=== PATIENT | female | born 1970 | race Caucasian/White ===

== ENCOUNTER 2019-10-06 15:45 | Outpatient (CLI) | payer BC, SELFPAY ==
[2019-10-06 16:02] LABS: Basophils Percent Auto 0.3 % (0.2-1.2); Eosinophils Absolute Auto 0.2 K/mm3 (0-0.3); Eosinophils Percent Auto 1.9 % (0-4.4); Hematocrit 44.2 % (37.0-47.0); Hemoglobin 14.3 g/dL (12.0-15.0); Immature Granulocyte Absolute 0.03 K/mm3 (0.00-0.031); Immature Granulocyte Percent A 0.3 % (0-0.5); Lymphocytes Percent Auto 14.6 % (18.3-44.2); Mean Corpuscular HGB Conc 32.4 g/dl (32-36); Mean Corpuscular Hemoglobin 28.1 pg (26-34); Mean Platelet Volume 8.8 fl (7.4-10.4); Monocytes Absolute Auto 0.7 K/mm3 (0.1-0.6); Monocytes Percent Auto 7.2 % (2.6-8.5); Neutrophils Absolute Auto 7.3 K/mm3 (1.3-6.7); Neutrophils Percent Auto 75.7 % (45.5-73.1); Platelet Count Result 438 k/mm3 (150-375); Red Blood Count 5.08 M/mm3 (4.2-5.4); Red Cell Distribution Width 13.1 % (11.5-14.5); White Blood Count 9.6 K/mm3 (4.5-10.0)
[2019-10-06 16:08] LABS: Blood Urea Nitrogen 6 mg/dL (8-26); Carbon Dioxide 26 mmol/L (22-30); Chloride 105 mmol/L (98-109); Estimated Glomerular Filt Rate > 60; Glucose 90 mg/dL (70-105); Potassium 2.9 mmol/L (3.5-4.9); Sodium 141 mmol/L (138-146)
[2019-10-06 16:47] LABS: Iron 32 ug/dL (37-170)
[2019-10-06 16:56] LABS: Percent Iron Saturation 12 % (20-50)
[2019-10-06 18:01] LABS: Folic Acid 6.4 ng/mL (2.76->20)
== END 2019-10-06 15:46 | disposition home or self-care (01) ==
LOC: ANHLAB 15:49
PROVIDERS: PCP Family Medicine; Visit Provider Internal Medicine Hematology & Oncology
DX: D05.11 Intraductal carcinoma in situ of right breast (principal); D50.9 Iron deficiency anemia, unspecified
CPT/HCPCS: 36415; 80048; 82607; 82728; 82746; 83540; 83550; 85025

== ENCOUNTER 2019-11-01 06:54 | Outpatient (CLI) | payer BC, SELFPAY ==
--- NOTE | ~2019-11-01 | XR_ITS ---
XR abdomen/kub 1V 11/01/2019 07:20 Indication: Left-sided kidney stones Procedure: KUB Comparison: Comparison to multiple prior studies sequentially, with oldest reviewed study dated 01/15. Findings: There are clustered fragmented stones in the lower pole of the left kidney. There is an IUD in the pelvis. There are pelvic phleboliths. Bowel gas pattern is nonobstructive. No acute osseous a bnormality. Impression: 1: Left nephrolithiasis. Reviewed, dictated and finalized at location A. Impression: 1: Left nephrolithiasis.
== END 2019-11-01 06:55 | disposition home or self-care (01) ==
PROVIDERS: PCP Family Medicine; Visit Provider Urology
DX: N20.0 Calculus of kidney (principal)
CPT/HCPCS: 74018

== ENCOUNTER 2020-03-31 13:15 | Outpatient (CLI) | payer BC, SELFPAY ==
[2020-03-31 13:32] LABS: Basophils Percent Auto 0.3 % (0.2-1.2); Eosinophils Absolute Auto 0.2 K/mm3 (0-0.3); Hematocrit 40.8 % (37.0-47.0); Hemoglobin 13.4 g/dL (12.0-15.0); Immature Granulocyte Absolute 0.03 K/mm3 (0.00-0.031); Immature Granulocyte Percent A 0.3 % (0-0.5); Lymphocytes Absolute Auto 1.47 K/mm3 (0.9-3.2); Lymphocytes Percent Auto 14.6 % (18.3-44.2); Mean Corpuscular HGB Conc 32.8 g/dl (32-36); Mean Corpuscular Hemoglobin 28.5 pg (26-34); Mean Corpuscular Volume 86.6 fl (80-100); Monocytes Absolute Auto 0.7 K/mm3 (0.1-0.6); Monocytes Percent Auto 6.6 % (2.6-8.5); Neutrophils Absolute Auto 7.7 K/mm3 (1.3-6.7); Neutrophils Percent Auto 76.2 % (45.5-73.1); Platelet Count Result 449 k/mm3 (150-375); Red Blood Count 4.71 M/mm3 (4.2-5.4); Red Cell Distribution Width 12.9 % (11.5-14.5); White Blood Count 10.1 K/mm3 (4.5-10.0)
[2020-03-31 14:59] LABS: Iron 42 ug/dL (37-170)
[2020-03-31 15:00] LABS: Alanine Aminotransferase 13 U/L (4-35); Albumin Level 4.2 g/dL (3.5-5.1); Alkaline Phosphatase 88 U/L (38-126); Anion Gap 15.1 mmol/L (7-16); Aspartate Amino Transferase 18 U/L (14-36); Bilirubin,Total 0.2 mg/dL (0.2-1.3); Blood Urea Nitrogen 12 mg/dL (7-17); Calcium 9.1 mg/dL (8.4-10.2); Carbon Dioxide 20 mmol/L (22-30); Chloride 108 mmol/L (98-107); Estimated Glomerular Filt Rate > 60; Glucose 105 mg/dL (65-105); Potassium 3.1 mmol/L (3.4-5.0); Sodium 140 mmol/L (137-145)
[2020-03-31 15:08] LABS: Percent Iron Saturation 16 % (20-50)
[2020-03-31 16:05] LABS: Folic Acid 13.2 ng/mL (2.76->20)
== END 2020-03-31 13:16 | disposition home or self-care (01) ==
PROVIDERS: PCP Family Medicine; Visit Provider Internal Medicine Hematology & Oncology
DX: D50.9 Iron deficiency anemia, unspecified (principal)
CPT/HCPCS: 36415; 80053; 82607; 82728; 82746; 83540; 83550; 85025

== ENCOUNTER → 2020-04-20 11:26 | Outpatient (CLI) | payer BC, SELFPAY ==
--- NOTE | ~2020-04-20 | US_ITS ---
EXAMINATION: US transvaginal EXAM DATE: 04/20/2020 12:07 INDICATION: Missing IUD strings. TECHNIQUE: Pelvic transvaginal sonogram was performed. There are multiple grayscale and Doppler imag es available for interpretation. There is no prior study for comparison. FINDINGS: Uterus measures 9.5 x 6.2 x 7.2 cmthere is a posterior fibroid measuring 3.6 cm, an anteri or fibroid measuring 1.9 cm. Artifact from IUD identified, appears to be along the posterior aspect o f the endometrial stripe rather than within the endometrial cavity Endometrial stripe measures 11 mm, within normal limits. There is no free pelvic fluid. Right adnexa: The ovary measures 3.3 x 1.8 x 1.9 cm and is morphologically normal. Ovarian vascular f low confirmed. Left adnexa: The ovary measures 2.5 x 1.8 x 1.5 cm and is morphologically normal. Ovarian vascular fl ow confirmed. IMPRESSION: 1. IUD which may be within posterior aspect of endometrium rather than within the canal. Reviewed, dictated and finalized at location A.
== END ==
PROVIDERS: Visit Provider Nurse Practitioner
DX: T83.32XA Displacement of intrauterine contraceptive device, initial encounter (principal)
CPT/HCPCS: 76830

== ENCOUNTER 2020-06-30 08:58 | Outpatient (CLI) | payer BC, SELFPAY | END 2020-06-30 08:59 | disposition home or self-care (01) | LOC: ANHAUDIO 08:59 | PROVIDERS: PCP Family Medicine; Visit Provider Otolaryngology | DX: H69.80 Other specified disorders of Eustachian tube, unspecified ear (principal); H69.00 Patulous Eustachian tube, unspecified ear | CPT/HCPCS: 92557; 92567 ==

== ENCOUNTER 2023-08-05 12:50 | Emergency (ER) | payer OTHER, SELFPAY ==
[2023-08-05 12:59] VITALS: BP 106/69; PULSE 82; RESP 16; TEMP 36.7; O2SAT 100
--- NOTE | 2023-08-05 13:53 | ED.URI ---
HPI - URI/Sore Throat General Chief Complaint: Upper Respiratory Infection Stated Complaint: Sinus Time Seen by Provider: 08/05/23 13:53 Source: patient, RN notes reviewed and old records reviewed Mode of arrival: ambulatory Limitations: no limitations History of Present Illness HPI Narrative: 53-year-old female presents to the [facility] with sinus congestion and fevers since Friday. Patient reports fevers as high as 103. Has taken emvo-fih-kihngpl products. Related Data Home Medications Medication Instructions Recorded Confirmed venlafaxine 150 mg mg PO 08/05/23 capsule,extended release 24 hr Allergies Allergy/AdvReac Type Severity Reaction Status Date / Time meperidine Allergy Severe THROAT Verified 08/05/23 13:08 SWELLING Review of Systems Review of Systems: All systems reviewed & are unremarkable except as noted in HPI and below Constitutional: Constitutional: Reports as per HPI, Reports body ache(s), Reports fatigue and Reports fever(s) Eyes: Eyes: Reports no additional eye complaints ENT: Reports system reviewed and no additional complaints, except as documented Cardiovascular: Cardiovascular: Reports no additional cardiovascular complaints, Denies chest pain and Denies dyspnea Respiratory: Respiratory: Reports no additional respiratory complaints, Denies chest congestion, Denies cough and Denies dyspnea Gastrointestinal: Gastrointestinal: Reports no additional gastrointestinal complaints, Denies abdominal pain, Denies nausea and Denies vomiting Musculoskeletal: Musculoskeletal: Reports no additional musculoskeletal complaints Integumentary/Breasts: Skin/Breast: Reports system reviewed and no additional complaints, except as docu Neurologic: Reports system reviewed and no additional complaints, except as documented Psychiatric: Psychiatric: Reports no additional psychiatric complaints Allergic/Immunologic: Allergic/Immunologic: Reports no additional allergic/immunologic complaints [facility] Past Medical History Medical History Anxiety B12 deficiency Breast cancer Surgical History Surgical History History of mastectomy (~2019) bilateral Family History Family History Father COPD (chronic obstructive pulmonary disease) Mother Breast cancer Father Diabetes mellitus Grandparent Diabetes mellitus Hypertension Malignant neoplasm of prostate Mother Hypertension Family history of malignant neoplasm of breast in first degree relative Social History Social History (Reviewed 08/05/23 @ 20:30 by TEX John Smoking status: Never smoker Second hand tobacco smoke exposure: No Alcohol intake: current Alcohol use details: socially Substance use: never Comments At the time of my signature, I reviewed and agree with the nursing past medical, surgical, social, and family history. There is no relevant family history pertinent to the patient complaint. Exam Const: General: cooperative, healthy appearing, comfortable, no acute distress, well developed, alert and well nourished Nutritional Appearance: well nourished Orientation/consciousness: patient oriented x3 Limitations: no limitations HENMT: Head: normal to inspection Ears: hearing grossly normal bilaterally, external ears normal, TM's normal bilaterally, mastoids normal and no periauricular adenopathy Face/Nose/Sinus: Normal external nose present, Normal nares present, Normal nasal mucous membranes and turbinates present, normal facial exam and face symmetric Face and sinus: normal facial exam and face symmetric Mouth: Yes Normal oral and palatal mucosa present, Yes lip normal and Yes moist mucous membranes Throat: posterior oropharynx normal, tonsils normal, uvula midline and postnasal drainage Eyes: General: appearance normal, both eyes an
== END 2023-08-05 14:05 | disposition home or self-care (01) ==
PROVIDERS: Emergency Provider Nurse Practitioner; PCP Family Medicine
DX: J10.1 Influenza due to other identified influenza virus with other respiratory manifestations (principal); Z20.822 Contact with and (suspected) exposure to COVID-19; F41.9 Anxiety disorder, unspecified; Z85.3 Personal history of malignant neoplasm of breast; Z90.13 Acquired absence of bilateral breasts and nipples
CPT/HCPCS: 87426; 87804; 99213; C9803; G0463

== ENCOUNTER 2024-05-01 08:45 | Outpatient (CLI) | payer OTHER, SELFPAY ==
[2024-05-01 09:19] LABS: Hematocrit 40.8 % (37.0-47.0); Hemoglobin 12.9 g/dL (12.0-15.0); Mean Corpuscular HGB Conc 31.6 g/dl (32-36); Mean Corpuscular Volume 88.7 fl (80-100); Mean Platelet Volume 9.7 fl (7.4-10.4); Platelet Count Result 377 k/mm3 (150-375); Red Cell Distribution Width 14.3 % (11.5-14.5); White Blood Count 9.9 K/mm3 (4.5-10.0)
[2024-05-01 09:30] LABS: Hemoglobin A1C 5.8 % (<5.7)
[2024-05-01 09:32] LABS: Alanine Aminotransferase 31 U/L (6-35); Alkaline Phosphatase 92 U/L (38-126); Anion Gap 11 mmol/L (4-12); Aspartate Amino Transferase 27 U/L (14-36); Bilirubin,Total 0.3 mg/dL (0.2-1.3); Blood Urea Nitrogen 18 mg/dL (7-17); Calcium 9.2 mg/dL (8.4-10.2); Carbon Dioxide 24 mmol/L (22-30); Chloride 106 mmol/L (98-107); Cholesterol 192 mg/dL (0-200); Estimated Glomerular Filt Rate > 60; Glucose 95 mg/dL (65-110); HDL Direct 50 mg/dL; Potassium 3.8 mmol/L (3.4-5.0); Sodium 141 mmol/L (137-145); Triglycerides 167 mg/dL (<150)
[2024-05-01 09:43] LABS: LDL Cholesterol Direct 107 mg/dL
[2024-05-01 09:57] LABS: Free T4 Free Thyroxine 1.14 ng/mL (0.78-2.19); Vitamin D 25 Hydroxy 30.6 ng/mL
== END 2024-05-01 08:46 | disposition home or self-care (01) ==
LOC: ANHLAB 08:47
PROVIDERS: PCP Family Medicine; Visit Provider Nurse Practitioner
DX: E55.9 Vitamin D deficiency, unspecified (principal); Z13.1 Encounter for screening for diabetes mellitus; Z13.220 Encounter for screening for lipoid disorders; Z13.29 Encounter for screening for other suspected endocrine disorder; Z13.0 Encounter for screening for diseases of the blood and blood-forming organs and certain disorders involving the immune mechanism
CPT/HCPCS: 36415; 80053; 80061; 82306; 82607; 83036; 84439; 84443; 85027

== ENCOUNTER 2024-12-28 15:01 | Outpatient (CLI) | payer OTHER, SELFPAY ==
--- NOTE | ~2024-12-28 | CT_ITS ---
Non-contrast CT scan of the Abdomen and Pelvis Clinical indication: Rib fractures Technique: 2.5 mm axial scans were obtained through the abdomen and pelvis without intravenous or or al contrast. Dose reduction technique was used on this scan by utilizing automated exposure control a nd iterative reconstruction technique. The dose-length product (DLP) was 398.10 mGy-cm. Findings: Images through the lung bases reveal no abnormalities. Prior ORIF of the right sixth throu gh ninth ribs. Additional healed fracture deformity of the right 10th rib noted. 14 mm nonobstructing left lower pole renal stone present. Probable 4 mm nonobstructing right renal st one. No ureteral stone or hydronephrosis on either side. The liver, spleen, pancreas, gallbladder, and adrenals appear normal. There is no aortic aneurysm. There is no evidence of bowel obstruction. Images through the pelvis were performed. There is no evidence of ascites or lymphadenopathy. Urinary bladder unremarkable. No adnexal mass. Subacute to chronic fracture deformity of the right iliac win g present. Impression: Multiple rib fracture deformities the right lung base, as detailed above, with prior ORIF from the si xth and ninth ribs. Subacute to chronic fracture deformity the right iliac wing. Correlate with clinical history. Bilateral nephrolithiasis, as above. Reviewed, dictated and finalized at location . Impression: Multiple rib fracture deformities the right lung base, as detailed above, with prior ORIF from the sixth and ninth ribs. Subacute to chronic fracture deformity the right iliac wing. Correlate with cli nical history. Bilateral nephrolithiasis, as above.
--- OUTSIDE RECORDS SUMMARY | 2024-12-28 15:12 | XMS_ITS | Clinical Summary ---
Author Organization [facility] Address [address] [place] [address] Phone Care Team Providers Care Vocational Nurse Name Role Phone Kizzy Nava MD Primary Care Provider [phone] Amber Williamson MD Unavailable [phone] Allergies Active Allergy Reactions Criticality Noted Date Comments Meperidine Swelling,Angioedema High 12/17/2018 Swollen face Medications traZODone (DESYREL) 50 mg tablet Take 1 tablet (50 mg total) by mouth nightly Active venlafaxine XR (EFFEXOR-XR) 150 mg 24 hr capsule Take 1 capsule (150 mg total) by mouth daily Active meloxicam (MOBIC) 15 mg tabletIndications: Left elbow pain,Medial epicondylitis of left elbow,Lateral epicondylitis of left elbow,Carpal tunnel syndrome of left wrist Take 1 tablet (15 mg total) by mouth daily with breakfast 30 tablet 4 Active Active Problems Problem Noted Date Diagnosed Date HX: breast cancer 03/09/2023 Abdominal ptosis 12/03/2019 Overview (12/03/2019): Added automatically from request for surgery [id number] H/O bilateral breast implants 12/03/2019 Overview (12/03/2019): Added automatically from request for surgery [id number] Ductal carcinoma in situ (DCIS) of breast 2018 Surgical History Surgery Date Site/Laterality Comments TONSILLECTOMY 08/25/1996 - 08/24/1997 SECTION 08/25/1999 - 08/24/2000 reports had drop in BP during csection UPPER GASTROINTESTINAL ENDOSCOPY 10/23/2018 - 11/22/2018 COLONOSCOPY 10/23/2018 - 11/22/2018 LITHOTRIPSY 08/25/2018 - 08/24/2019 BREAST BIOPSY 08/25/2018 - 08/24/2019 Right DCIS MASTECTOMY 07/25/2019 - 08/24/2019 Bilateral Medical History Medical History Date Comments Iron deficiency anemia Postoperative delirium short per iod of confusion followig previous procedures History of kidney stones s/p lit hotripsy 02/2019 History of breast cancer Right D CIS dxd 2018 s/p bilateral mastectomy 07/2019 Family History Medical History Relation Name Comments Bladder Cancer Father Breast cancer Mother Stroke Other possible grandp arent with CVA Coronary artery disease Paternal Grandmother s/p CABG Heart attack Paternal Grandmother Anesthesia problems Neg Hx Relation Name Status Comments Father Mother Other Paternal Grandmother Social History Tobacco Use Types Packs/Day Years Used Date Smoking Tobacco: Never Smokeless Tobacco: Never Tobacco Cessation:Counseling Given: Not Answered Alcohol Use Standard Drinks/Week Comments Yes 1 (1 standard drink = 0.6 oz pur e alcohol) Social AUDIT-C Answer Date Recorded Frequency of Alcohol Consumption 2-4 times a fri07/08/2019 Average Number of Drinks 1 or 2 019 Frequency of Binge Drinking Never 06/25 Comments No Sex and Gender Information Value Date Recorded Sex Assigned at Not on file 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 Gender Identity Female 02/05/2020 5:37 PM CDT Sexual Orientation Not on file Obstetrics History Last Filed Vital Signs Vital Sign Reading Time Taken Comments Blood Pressure 125/65 01/13/2024 1:08 PM CDT Pulse 65 01/13/2024 1:08 PM CDT Temperature 36.5 C (97.7 F) 10/30/2020 12:52 PM MVA OPERATOR Respiratory Rate 18 01/13/2024 1:08 PM CDT Oxygen Saturation 100% 02/08/2020 7:46 AM CDT Inhaled Oxygen Concentration - - Weight 53.5 kg (118 lb) 01/13/2024 1:08 PM CDT Height 152.4 cm (5') 01/13/2024 1:08 PM CDT Body Mass Index 23.05 01/13/2024 1:08 PM CDT Plan of Treatment Health Maintenance Due Date Last Done Comments Breast Cancer Screening-Mammogram 1972 Cervical Cancer Screening 1972 Colon Cancer Screening-Colonoscopy 1972 Depression Screening 1972 Hepatitis C Screening 1972 DTaP/Tdap/Td Vaccine (1 - Tdap) 1983 Hepatitis B Screening 1990 Regular Well Visit/Exam 18-64 1990 Zoster Vaccine (1 of 2) 2022 Influenza Vaccine (Season Ended) 2025 05/13/20 20 Pneumococcal vaccine <65 Aged Out No longer eligible based on patient's age to complete this topic Medical Devices Implanted Type Area Medical Equipment Repairer Device Identifier Shelf Expiration Date Model / Serial / Lot Life Cell Breeze [employer] [id number] Alloderm Select [id number] Allograft Regenerative Thk.4-2.4mm Thick - [id number] - [id number] Implanted:Qty: 1 on 07/28/2019 by Luca West MD at [facility] Breast Right: Breast [employer] 06/24/2021 [id number] / [id number] / [id number] Life Cell Eloina [id number] Alloderm Select [id number] Allograft Regenerative Thk.4-2.4mm Thick - [id number] - [id number] Implanted:Qty: 1 on 07/28/2019 by Luca West MD at [facility] Breast Left: Breast [employer] 06/24/2021 [id number] / [id number] / [id number] [employer] Ssf-415 Natdianee Inspira Smooth Shell Surface Full Profile Implant 415cc Latex Free - [id number] - [id number] Implanted:Qty: 1 on 07/28/2019 by Amber Williamson MD at [facility] Breast Left: Breast [employer] 07/15/2023 SSF-415 / [id number] / [id number] [employer] Ssf-415 Natrelle Inspira Smooth Shell Surface Full Profile Implant 415cc Latex Free - [id number] - [id number] Implanted:Qty: 1 on 07/28/2019 by Amber Williamson MD at [facility] Breast Right: Breast [employer] 02/03/2024 SSF-415 / [id number] / [employer] Ssx-545 Natrelle Inspira Soft Touch Implant 545cc Breast Sterile Latex Free - [id number] - [id number] Implanted:Qty: 1 on 02/07/2020 by Piedad Mackey MD at [facility] Left: Breast [employer] 09/18/2024 SSX-545 / [id number] / [employer] Ssx-545 Natrelle Inspira Soft Touch Implant 545cc Breast Sterile Latex Free - [id number] - [id number] Implanted:Qty: 1 on 02/07/2020 by Anna Beltran MD at [facility] Right: Breast [employer] 02/03/2023 SSX-545 / [id number] / Explanted Type Area Medical Equipment Repairer Device Identifier Shelf Expiration Date Model / Serial / Lot Breast Implant Explanted:Qty: 1 on 02/07/2020 by Piedad Mackey MD at [facility] Right: Breast [employer] Breast Implant Explanted:Qty: 1 on 02/07/2020 by Anna Beltran MD at [facility] Left: Breast [employer] Insurance [facility] [employer] Address: [place] [address] [facility] [employer] [facility] Address: [place] [address] Advance Directives For more information, please contact: [phone] * Full Code (Latest Code Status on File) Date Activated Date Inactivated Comments 02/07/2020 3:23 PM 02/08/2020 1:40 PM * Full Code Date Activated Date Inactivated Comments 07/28/2019 5:09 PM 07/29/2019 3:35 PM Care Teams Vocational Nurse Relationship Specialty Start Date End Date Kizzy Nava MD PCP - General Family Medicine 04/06/19 Amber Williamson MD Surgeon Surgical Oncology 09/20/19
--- OUTSIDE RECORDS SUMMARY | 2024-12-28 15:12 | XMS_ITS | Referral Summary ---
Author Organization [facility] Address [address] [place] [address] Phone Care Team Providers Care Professional Shopper Name Role Phone Kizzy Nava MD Primary Care Provider [phone] Amber Williamson MD Unavailable [phone] Allergies Active Allergy Reactions Criticality Noted Date [...] (12/03/2019): Added automatically from request for surgery [id number] H/O bilateral breast implants 12/03/2019 Overview (12/03/2019): Added automatically from request for surgery [id number] Ductal carcinoma in situ (DCIS) of breast 2018 Social History Tobacco Use Types Packs/Day Years Used Date Smoking Tobacco: Never Smokeless Tobacco: Never Tobacco Cessation:Counseling Given: Not Answered Alcohol Use Standard Drinks/Week Comments Yes 1 (1 standard drink = 0.6 oz pur e alcohol) Social AUDIT-C Answer Date Recorded Frequency of Alcohol Consumption 2-4 times a mon 07/08/2019 Average Number of Drinks 1 or 2 019 Frequency of Binge Drinking Never 06/25 Comments No Sex and Gender Information Value Date Recorded Sex Assigned at Not on file 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 Gender Identity Female 02/05/2020 5:37 PM CDT Sexual Orientation Not on file Last Filed Vital Signs Vital Sign Reading Time Taken Comments Blood Pressure 125/65 01/13/2024 1:08 PM CDT Pulse 65 01/13/2024 1:08 PM CDT Temperature 36.5 C (97.7 F) 10/30/2020 12:52 PM PROGRAMMING INTERNSHIP Respiratory Rate 18 01/13/2024 1:08 PM CDT Oxygen Saturation 100% 02/08/2020 7:46 AM CDT Inhaled Oxygen Concentration - - Weight 53.5 kg (118 lb) 01/13/2024 1:08 PM CDT Height 152.4 cm (5') 01/13/2024 1:08 PM CDT Body Mass Index 23.05 01/13/2024 1:08 PM CDT Plan of Treatment Not on file Medical Devices Implanted Type Area Cloth Stock Sorter Device Identifier Shelf Expiration Date Model / Serial / Lot Life Cell Eloina [id number] Alloderm Select [id number] Allograft Regenerative Thk.4-2.4mm Thick - [id number] - [id number] Implanted:Qty: 1 on 07/28/2019 by Luca West MD at [facility] Breast Right: Breast [employer] 06/24/2021 [id number] / [id number] / [id number] [employer] [id number] Alloderm Select [id number] Allograft Regenerative Thk.4-2.4mm Thick - [id number] - [id number] Implanted:Qty: 1 on 07/28/2019 by Luca West MD at [facility] Breast Left: Breast [employer] 06/24/2021 [id number] / [id number] / [id number] [employer] Ssf-415 Natrelle Inspira Smooth Shell Surface Full Profile Implant 415cc Latex Free - [id number] - [id number] Implanted:Qty: 1 on 07/28/2019 by Amber Williamson MD at [facility] Breast Left: Breast [employer] 07/15/2023 SSF-415 / [id number] / [id number] [employer] Ssf-415 Natrelle Inspira Smooth Shell Surface Full Profile Implant 415cc Latex Free - [id number] - [id number] Implanted:Qty: 1 on 07/28/2019 by Amber Williamson MD at [facility] Breast Right: Breast [employer] 02/03/2024 SSF-415 / [id number] / [employer] Ssx-545 Natrelle Inspira Soft Touch Implant 545cc Breast Sterile Latex Free - [id number] - [id number] Implanted:Qty: 1 on 02/07/2020 by Piedad Mackey MD at [facility] Left: Breast [employer] 09/18/2024 SSX-545 / [id number] / [employer] Ssx-545 Natrelle Inspira Soft Touch Implant 545cc Breast Sterile Latex Free - [id number] - [id number] Implanted:Qty: 1 on 02/07/2020 by Anna Beltran MD at [facility] Right: Breast [employer] 02/03/2023 SSX-545 / [id number] / Explanted Type Area Cloth Stock Sorter Device Identifier Shelf Expiration Date Model / Serial / Lot Breast Implant Explanted:Qty: 1 on 02/07/2020 by Piedad Mackey MD at [facility] Right: Breast [employer] Breast Implant Explanted:Qty: 1 on 02/07/2020 by Anna Beltran MD at [facility] Left: Breast [employer] Insurance [facility] Address: [place] [address] [facility] Address: [place] [address] Advance Directives For more information, please contact: [phone] * Full Code (Latest Code Status on File) Date Activated Date Inactivated Comments 02/07/2020 3:23 PM 02/08/2020 1:40 PM * Full Code Date Activated Date Inactivated Comments 07/28/2019 5:09 PM 07/29/2019 3:35 PM Care Teams Professional Shopper Relationship Specialty Start Date End Date Kizzy Nava MD PCP - General Family Medicine 04/06/19 Amber Williamson MD Surgeon Surgical Oncology 09/20/19
--- OUTSIDE RECORDS SUMMARY | 2024-12-28 15:13 | XMS_ITS | Clinical Summary ---
Author Organization [facility] Address [address] [place] [address] Care Team Providers Care Tar Chaser Name Role Phone Kizzy Nava MD Primary Care Provider [phone] Source Comments [facility],non-ssm rehab Affiliates and Associated Physician Practices is amultiple site organization consisting of ambulatory clinics and hospital sitesin [place], [place], [place] and [place]. This disclosure is being madepursuant to the Care Everywhere program and may not contain all information available regarding this patient. Last updated 18.[facility] Allergies Active Allergy Reactions Criticality Noted Date Comments Meperidine Itching,Angioedema,S well ing High 12/17/2018 Swollen face Swollen face Swollen face Medications * Be aware that medications may not be up to date on this document. Alwaysverify current medications with the patient. acetaminophen (Tylenol) 500 MG tablet 2 (two) tablets by Enteral Tube route every 6 hours as needed Maximum allowable Acetaminophen amount = 4 Grams (4000 mg) / 24 hours. 09/02/19 25 Active calcium carbonate (Tums) 500 MG chew tablet 1 (one) tablet by Enteral Tube route every 3 hours as needed for Heartburn 09/02/19 25 Active hydrOXYzine HCl (Atarax) 10 MG tablet 1 (one) tablet by Enteral Tube route every 6 hours as needed for Itching 09/02/19 25 Active Additional Information Patient not taking.Reason: Patient adjusted, Reported on 12/21/2024 albuterol-iprat ropium (Duo-Neb) 0.5-2.5 (3) MG/3ML nebulizer solution Inhale 3 mL by mouth every 6 hours as needed for Shortness of Breath or Wheezing 09/02/19 Active Additional Information Patient not taking.Reported on 12/21/2024 apixaban (Eliquis) 2.5 MG tablet Take 1 (one) tablet by mouth 2 times daily for 35 days 09/02/19 Active Additional Information Patient not taking.Reason: Patient adjusted, Reported on 12/21/2024 FLUoxetine (PROzac) 10 MG capsule 1 (one) capsule by Enteral Tube route once daily 09/03/19 Active traZODone (Desyrel) 50 MG tablet 1 (one) tablet by Enteral Tube route nightly as needed for Insomnia 09/02/19 Active Additional Information Patient not taking.Reason: Patient adjusted, Reported on 12/21/2024 venlafaxine XR 24hr (Effexor XR) 150 MG capsule Take 1 (one) capsule by mouth daily with breakfast 09/03/19 Active guaiFENesin (Robitussin) 100 MG/5ML solution 15 mL by Enteral Tube route every 6 hours as needed for Cough 09/02/19 Active hydrocortisone (Hytone) 1 % cream Apply to affected area 3 times daily as needed (itching) 09/02/19 Active Additional Information Patient not taking.Reason: Patient adjusted, Reported on 12/21/2024 lidocaine (Lidoderm) 5 % patch Apply 2 (two) patches to skin once daily Apply patch to most painful area and remove after 12 hours. May reapply a new patch 12 hours later. 09/03/19 Active Additional Information Patient not taking.Reason: Patient adjusted, Reported on 12/21/2024 bisacodyl (Dulcolax) 10 MG suppository Insert 1 (one) suppository into the rectum once daily 09/03/19 Active Additional Information Patient not taking.Reason: Patient adjusted, Reported on 12/21/2024 docusate sodium (Colace) 50 MG/5ML solution 10 mL by Enteral Tube route 2 times daily 09/02/19 Active Additional Information Patient not taking.Reason: Patient adjusted, Reported on 12/21/2024 polyethylene glycol 3350 (Miralax) 17 g packet 17 (seventeen) g by Enteral Tube route once daily 01/10/20 25 Active Additional Information Patient not taking.Reason: Patient adjusted, Reported on 12/21/2024 senna (Senokot Extra Strength) 17.2 MG 17.2 mg by Enteral Tube route once daily 09/03/19 25 Active Additional Information Patient not taking.Reason: Patient adjusted, Reported on 12/21/2024 tamsulosin (Flomax) 0.4 MG capsule Take 1 (one) capsule by mouth at bedtime At the same time every day after a meal. 09/02/19 25 Active methocarbamol (Robaxin) 750 MG tablet 1 (one) tablet by Enteral Tube route every 6 hours 09/02/19 Active Additional Information Patient not taking.Reason: Patient adjusted, Reported on 12/21/2024 vitamin D3 (Cholecalcifero l) 25 MCG (1000 UNITS) tablet 1 (one) tablet by Enteral Tube route once daily 09/03/19 25 Active HYDROcodone-jeremy taminophen (La Belle) 5-325 MG tabletIndicatio ns:Injury of diaphragm, initial encounter Take 1 (one) tablet by mouth every 4 hours as needed 09/02/19 Active Additional Information Patient not taking.Reason: Patient adjusted, Reported on 12/21/2024 HYDROcodone-jeremy taminophen (La Belle) 5-325 MG tabletIndicatio ns:Injury of diaphragm, initial encounter Take 2 (two) tablets by mouth every 4 hours as needed 09/02/19 Active Additional Information Patient not taking.Reason: Patient adjusted, Reported on 12/21/2024 docusate sodium (Colace) 100 MG capsule Take 1 (one) capsule by mouth 2 times daily 09/14/19 25 Active estradiol (Estrace) 0.1 MG/GM vaginal cream INSERT 1GM INTRAVAGINALLY TWICE WEEKLY 04/27/20 24 Active lisdexamfetamin e (Vyvanse) 10 MG capsule Take 1 (one) capsule by mouth once daily 07/05/20 24 Active omeprazole (PriLOSEC) 40 MG capsule Take 1 (one) capsule by mouth once daily 12/06/19 25 Active gabapentin (Neurontin) 100 MG capsule Take 1 (one) capsule by mouth 3 times daily 90 capsule 12/22/19 25 Active gabapentin (Neurontin) 300 MG capsule Take 1 (one) capsule by mouth 3 times daily 09/02/19 25 025 Discontin ued(Clini audrey Decision) Active Problems Problem Noted Date Diagnosed Date Fracture of multiple ribs of right side 08/20/20 24 Compression fracture of L2 08/20/2024 Fracture of thoracic transverse process 08/20/20 24 Closed displaced fracture of medial cuneiform of left foot 08/20/2024 Fracture of navicular bone of left foot 08/20/20 Fracture of left ankle 08/20/2024 Fracture of second metatarsal bone of left foot 08/20/2024 Fracture of third metatarsal bone of left foot 1 10/21/2023 Open displaced fracture of r ight ilium, unspecified fracture morphology, initial encounter 08/17/2024 Resolved Problems Problem Noted Date Diagnosed Date Resolved Date Diaphragm injury 08/26/2024 09/29/2024 Traumatic hemopneumothorax 08/20/2024 0 09/29/2024 Fracture of manubrium, initi al encounter for closed fracture 08/20/2024 09/29/2024 Acute pain 08/20/2024 09/29/2024 Acute blood loss anemia 08/20/2024 02/0 12/2024 Pulmonary contusion 08/20/2024 09/29/19 25 Encounters Date Type Department Care Team Description 12/22/2024 Telephone [facility] - General Surgery [address] [place] [phone] Sandee Beaulieu, OLIVIER Coordination Of Care 12/21/2024 2:00 PM CDT Office Visit [facility] - General Surgery [address] [place] [phone] Closed fracture of multiple ribs of right side with routine healing, subsequent encounter (Primary Dx) 12/21/2024 Travel 12/17/2024 Travel 11/23/2024 11:19 AM CDT - 11/23/2024 11:59 PM CDT Hospital Encounter [facility] DIAGNOSTIC RAD [address] [place] [address] Mauricio Castañeda, DO Discharge Disposition: Home or Self Care 11/23/2024 11:00 AM CDT Office Visit [facility] - Orthopedics [address] [place] [phone] Mauricio Castañeda, Closed displaced fracture of medial cuneiform of left foot, initial encounter (Primary Dx); Open displaced fracture of right ilium, unspecified fracture morphology, initial encounter (HCC) 11/23/2024 Orders Only [facility] - Orthopedics [address] [place] [phone] Mauricio Castañeda, Closed displaced fracture of medial cuneiform of left foot, initial encounter; Open displaced fracture of right ilium, unspecified fracture morphology, initial encounter (HCC) 11/23/2024 Travel 11/22/2024 Orders Only [facility] - Orthopedics [address] [place] [phone] Mauricio Castañeda, Closed displaced fracture of medial cuneiform of left foot, initial encounter 10/26/2024 11:30 AM H[employer] LAMINATING OPERATOR Office Visit [facility] - Orthopedics [address] [place] [phone] Mauricio Castañeda, Open displaced fracture of right ilium, unspecified fracture morphology, initial encounter (Primary Dx); Closed displaced fracture of medial cuneiform of left foot, initial encounter 10/26/2024 11:18 AM H[employer] CROWN LAMINATING OPERATOR - 10/26/2024 11:59 PM H[employer] CR[employer] LAMINATING OPERATOR Hospital Encounter [facility] DIAGNOSTIC RAD [address] [place] [address] Mauricio Castañeda, DO Discharge Disposition: Home or Self Care 10/26/2024 11:17 AM H[employer] CR[employer] LAMINATING OPERATOR Hospital Encounter [facility] DIAGNOSTIC RAD [address] [place] [address] Mauricio Castañeda, DO Discharge Disposition: Home or Self Care 10/26/2024 Travel 10/19/2024 Orders Only [facility] - Orthopedics [address] [place] [phone] Mauricio Castañeda, DO Open displaced fracture of right ilium, unspecified fracture morphology, initial encounter ; Closed displaced fracture of medial cuneiform of left foot, initial encounter 10/11/2024 10:45 AM H[employer] LAMINATING OPERATOR Office Visit [facility] - Neurosurgery [address] [facility], [place] [address] Geoff Pickering MD Mattei, Tobias Alecio, MD Compression fracture of L3 lumbar vertebra, sequela (Primary Dx) 10/11/2024 9:55 AM H[employer] CROWN LAMINATING OPERATOR - 10/11/2024 11:59 PM H[employer] CROWN LAMINATING OPERATOR Hospital Encounter [facility] DIAGNOSTIC RAD [address] [place] [phone] Geoff Pickering MD Discharge Disposition: Home or Self Care 10/11/2024 Travel from Last 3 Months Immunizations Immunization Administration Dates Next Due TDAP (7yrs+) 08/17/2024 Social History Tobacco Use Types Packs/Day Years Used Date Smoking Tobacco: Never Passive Smoke Exposure: Never Smokeless Tobacco: Never Tobacco Cessation:Counseling Given: No AUDIT-C Answer Date Recorded Q1: How often do you have a drink containing alc ohol? Monthly or less 08/18/2024 Q2: How many drinks containi ng alcohol do you have on a typical day when you are drinking? 1 or 2 08/18/2024 Q3: How often do you have si x or more drinks on one occasion? Less than monthly 08/18/2024 Overall Financial Resource Strain (CARDIA) Answe r Date Recorded How hard is it for you to pa y for the very basics like food, housing, medical care, and heating? Not hard at all 08/18/2024 PHQ-2 Answer Date Recorded Patient Health Questionnaire-2 Score 1 10/26/2024 [facility] - Occupational Stress Questionnaire Answer Date Recorded Do you feel stress - tense, restless, nervous, or anxious, or unable to sleep at night because your mind is troubled all the time - these days? Not at all 08/18/2024 Hunger Vital Sign Answer Date Recorded Within the past 12 months, y ou worried that your food would run out before you got the money to buy more. Never true 08/18/20 Within the past 12 months, t he food you bought just didn't last and you didn't have money to get more. Never true 08/18/2024 PRAPARE - Transportation Answer Date Re corded In the past 12 months, has l ack of transportation kept you from medical appointments or from getting medications? No 07/26 In the past 12 months, has l ack of transportation kept you from meetings, work, or from getting things needed for daily living? No 08/18/2024 Housing Stability Vital Sign Answer Rupert e Recorded In the last 12 months, was t here a time when you were not able to pay the mortgage or rent on time? No 08/18/2024 In the past 12 months, how m any times have you moved where you were living? 0 08/18/2024 At any time in the past 12 m [facility], were you homeless or living in a group home (including now)? No 08/18/2024 Comments No Sex and Gender Information Value Date Recorded Sex Assigned at Not on file Legal Sex Female 4:04 AM CDT Gender Identity Not on file Sexual Orientation Not on file Last Filed Vital Signs Vital Sign Reading Time Taken Comments Blood Pressure 119/86 12/21/2024 2:04 PM CDT Pulse 94 12/21/2024 2:04 PM CDT Temperature 36.7 C (98 F) 12/21/2024 2:04 PM CDT Respiratory Rate 18 09/28/2024 2:19 PM H[employer] LAMINATING OPERATOR Oxygen Saturation 96% 12/21/2024 2:04 PM CDT Inhaled Oxygen Concentration 21% 09/01/2024 3 :21 AM H[employer] LAMINATING OPERATOR Weight 59.4 kg (131 lb) 12/21/2024 2:04 PM CDT Height 152.4 cm (5') 12/21/2024 2:04 PM CDT Body Mass Index 25.58 12/21/2024 2:04 PM CDT Plan of Treatment Upcoming Encounters Date Type Department Care Team (Late st Contact Info) Description 01/04/2025 11:00 AM CDT Office Visit [facility] - Orthopedics [address] [place] [address], [place] [address] Mauricio Castañeda, DO [address] [place] [address] [place] [address] Health Maintenance Due Date Last Done Comments PEEWEE (AGES 45-75) - COLON CA SCREENING 1972 COLON MONITORING 1972 COLONOSCOPY - COLON CA SCREENING 1972 CT COLONOGRAPHY - COLON CA SCREENING 1972 Colorectal Cancer Screening 1972 FIT - COLON CA SCREENING 1972 FLEX SIG - COLON CA SCREENING 1972 LIPID TESTING 1972 PAP SMEAR 1972 HIV SCREENING 1987 HEPATITIS C SCREENING 06/08/1990 HEPATITIS B VACCINE (1 of 3 - 19+ 3-dose series) 1991 PNEUMOCOCCAL VACCINE 50+ (1 of 2 - PCV) 1991 MAMMOGRAM 03/23/2021 03/23/2019 ZOSTER VACCINE (1 of 2) 2022 COVID-19 VACCINE (1 - season) 2024 INFLUENZA VACCINE (Season Ended) 2025 SCREENING FOR DIABETES 08/30/2027 , 08/29/2024, 08/28/2024, Additional history exists DTAP/TDAP/TD VACCINES (2 - Td or Tdap) 08/17/2034 08/17/2024 DEPRESSION SCREENING Completed 10/26/2024 HIB VACCINE Aged Out No longer eligi ble based on patient's age to complete this topic HPV VACCINE Aged Out No longer eligi ble based on patient's age to complete this topic MENINGOCOCCAL (Group B) VACCINE SHARED DECISION-MAKING Aged Out No longer eligible based on patient's age to complete this topic MENINGOCOCCAL GROUPS A/C/Y/W VACCINE Aged Out No longer eligible based on patient's age to complete this topic Goals Goal Patient Goal Type Associated Problems Recent Progress Patient-Stated? Author Mobility General No Nell Nolasco Note: Expected end date: PATIENT IS WB IN THE ACB The goal is to maintain or improve your mobility at the optimum level for you. Interventions: Perform independent activity per your ability Medical Devices Implanted Type Area Window Shade Ring Sewer Device Identifier Shelf Expiration Date Model / Serial / Lot 3.5 Mm Cannulated Screw- Long Thread 30mm. Implanted:Qty: 1 on 08/18/2024 by Mauricio Castañeda DO at [facility] Left: Foot [employer] [id number] TS / / 3.5 Mm Cannulated Screw- Long Thread- 32mm Implanted:Qty: 1 on 08/18/2024 by Mauricio Castañeda DO at [facility] Left: Foot [employer] [id number] TS / / 3.5 Mm Cannulated Screw- Long Thread- 36mm Implanted:Qty: 1 on 08/18/2024 by Mauricio Castañeda DO at [facility] Left: Foot [employer] [id number] TS / / Washer For 3.5 Bing Screw Implanted:Qty: 1 on 08/18/2024 by Mauricio Castañeda DO at [facility] Left: Foot [employer] [id number] .05 / / Screw 3.5mm 6mm 75mm Slf-Tap Sm Hex Sckt Implanted:Qty: 1 on 08/18/2024 by Mauricio Castañeda DO at [facility] Right: Hip [employer] 204.875 / / Screw 2.7mm 10mm Slf Drl Lck Matrixrib Implanted:Qty: 7 on 08/22/2024 by Geoff Pickering MD at [facility] [employer] [id number] .01 / / Screw 2.7mm 11mm Slf Drl Lck Matrixrib Implanted:Qty: 5 on 08/22/2024 by Geoff Pickering MD at [facility] [employer] [id number] .01 / / Screw 2.7mm 12mm Lck Slf Drl Matrixrib Implanted:Qty: 3 on 08/22/2024 by Geoff Pickering MD at [facility] [employer] [id number] .01 / / Plate 17 Hl Precontr Lck Lopro 6th Rb Implanted:Qty: 1 on 08/22/2024 by Geoff Pickering MD at [facility] [employer] 04.501.006 / / Mesh Srg [employer] [facility] [id number] Thk1mm Biomtl - [id number] Implanted:Qty: 1 on 08/22/2024 by Geoff Pickering MD at [facility] [employer] 09/09/2027 [id number] / [id number] / Description:DIAPHRAM Screw 2.7mm 10mm Slf Drl Nonlock Implanted:Qty: 2 on 08/22/2024 at [facility] [employer] Spine 250 .01 / / Plate 8 Hl Unv Matrixrib Ti Bone Nonster Implanted:Qty: 4 on 08/22/2024 by Geoff Pickering MD at [facility] [employer] .009 / / Screw 2.9mm 10mm Slf-Tap Lck Rb Implanted:Qty: 20 on 08/22/2024 by Geoff Pickering MD at [facility] [employer] Maxill[employer] 020 . / / Procedures Procedure Name Priority Date/Time Associated Diagnosis Comments XR FOOT LEFT 3VW OR MORE Routine 11/23/2024 11:24 AM CDT Closed displaced fracture of medial cuneiform of left foot, initial encounter XR FOOT LEFT 3VW OR MORE Routine 10/26/2024 11:32 AM H[employer] CROWN LAMINATING OPERATOR Closed displaced fracture of medial cuneiform of left foot, initial encounter XR PELVIS AP W INLET OUTLET Routine 10/26/2024 11:32 AM H[employer] CROWN LAMINATING OPERATOR Open displaced fracture of right ilium, unspecified fracture morphology, initial encounter XR LUMBAR SPINE 2 OR 3VW Routine 10/11/2024 10:02 AM H[employer] CROWN LAMINATING OPERATOR Compression fracture of L2 vertebra, initial encounter BASIC METABOLIC PANEL (CALCIUM TOTAL) AM Draw 08/30/2024 3:04 AM H[employer] CROWN LAMINATING OPERATOR from Last 3 Months or Most Recently Relevant to Health Maintenance Results * XR Foot Left 3Vw or More (11/23/2024 11:24 AM CDT) Only the most recent of2 resultswithin the time period is included. Anatomical Region Laterality Modality Ankle / Foot Computed Radiogr aphy 11/23/2024 11:2 7 AM CDT Impressions 11/23/2024 11:41 AM CDT IMPRESSION: Unchanged alignment of the navicular fracture and Lisfranc injury with screw fixation. Report dictated by Johanna Alamo MD (residential monitor). Jace Govea MD have personally reviewed and interpreted this examination/study. > Interpreting Provider: Jace Pennington MD on 11/23/2024 11:41 AM Narrative 11/23/2024 11:41 AM CDT PROCEDURE: XR FOOT LEFT 3VW OR MORE, DATE/TIME OF EXAM: 11/23/2024 11:24 AM, LOCATION [facility] INDICATION: S92.242A: Closed displaced fracture of medial cuneiform of left foot, initial encounter ADDITIONAL CLINICAL INFORMATION: Ordering Provider Reason For Exam: fracture Technologist Note: Additional: COMPARISON: Left foot radiograph 10/26/2024 . FINDINGS: Redemonstrated postsurgical changes of the fixation of the navicular fracture and Lisfranc injury with screws. The hardware appears intact and the alignment is unchanged. Soft tissue swelling is present. Posterior calcaneal and plantar osteophytes. A few tiny radiopaque findings at the dorsal aspect of the foot, unchanged. Procedure Note Jace Pennington MD - 11/23/2024 PROCEDURE: XR FOOT LEFT 3VW OR MORE, DATE/TIME OF EXAM: 11/23/2024 11:24 AM, LOCATION [facility] INDICATION: [id number]: Closed displaced fracture of medial cuneiform of left foot, initial encounter ADDITIONAL CLINICAL INFORMATION: Ordering Provider Reason For Exam: fracture Technologist Note: Additional: COMPARISON: Left foot radiograph 10/26/2024 . FINDINGS: Redemonstrated postsurgical changes of the fixation of the navicular fracture and Lisfranc injury with screws. The hardware appears intactand the alignment is unchanged. Soft tissue swelling is present. Posterior calcaneal and plantar osteophytes. A few tiny radiopaque findings at the dorsal aspect of the foot, unchanged. IMPRESSION: Unchanged alignment of the navicular fracture and Lisfranc injury with screw fixation. Report dictated by Johanna Alamo MD (residential monitor). Jace Govea MD have personally reviewed and interpreted this examination/study. > Interpreting Provider: Jace Pennington MD on 11/23/2024 11:41 AM Mauricio Castañeda DO DIAGNOSTIC IMAGING ORDERABLES Final Result * XR Pelvis AP W Inlet Outlet (10/26/2024 11:32 AM HAT BRIM AND CROWN LAMINATING OPERATOR) Anatomical Region Laterality Modality Pelvis Computed Radiogr aphy 10/26/2024 11:3 6 AM HAT BRIM AND CROWN LAMINATING OPERATOR Impressions 10/26/2024 11:44 AM HAT BRIM AND CROWN LAMINATING OPERATOR IMPRESSION: Unchanged alignment of the right iliac wing fracture. Report dictated by Mario Monge MD (Acquisitions Librarian). I, Jace Pennington MD have personally reviewed and interpreted this examination/study. > Interpreting Provider: Jace Pennington MD on 10/26/2024 11:44 AM Narrative 10/26/2024 11:44 AM HAT BRIM AND CROWN LAMINATING OPERATOR PROCEDURE: XR PELVIS AP W INLET OUTLET, DATE/TIME OF EXAM: 10/26/2024 11:32 AM, LOCATION [facility] INDICATION: S32.301B: Open displaced fracture of right ilium, unspecified fracture morphology, initial encounter ([facility]) ADDITIONAL CLINICAL INFORMATION: Ordering Provider Reason For Exam: post op COMPARISON: X-ray pelvis 09/28/2024 FINDINGS: Redemonstrated postsurgical changes of right iliac wing fracture with single screw fixation. The hardware appears intact and the osseous alignment is unchanged. Callus formation is visible. Bilateral femoral heads appear well-seated within the acetabula. Pubic symphysis and SI joints appear normal. Procedure Note Jace Pennington MD - 10/26/2024 PROCEDURE: XR PELVIS AP W INLET OUTLET, DATE/TIME OF EXAM: 1:32 AM, LOCATION [facility] INDICATION: S32.301B: Open displaced fracture of right ilium, unspecified fracture morphology, initial encounter ([facility]) ADDITIONAL CLINICAL INFORMATION: Ordering Provider Reason For Exam: post op COMPARISON: X-ray pelvis 09/28/2024 FINDINGS: Redemonstrated postsurgical changes of right iliac wing fracture with single screw fixation. The hardware appears intact and the osseous alignment is unchanged. Callus formation is visible. Bilateral femoral heads appear well-seated within the acetabula. Pubic symphysis and SI joints appear normal. IMPRESSION: Unchanged alignment of the right iliac wing fracture. Report dictated by Mario Monge MD (Acquisitions Librarian). IJace MD have personally reviewed and interpreted this examination/study. > Interpreting Provider: Jace Pennington MD on 10/26/2024 11:44 AM us Mauricio Castañeda DO DIAGNOSTIC IMAGING ORDERABLES Final Result * XR Lumbar Spine 2 or 3Vw (10/11/2024 10:02 AM HAT BRIM AND CROWN LAMINATING OPERATOR) Anatomical Region Laterality Modality Spine Digital Radiogra phy 10/11/2024 3:58 PM HAT BRIM [employer] CROWN LAMINATING OPERATOR Impressions 10/11/2024 8:14 PM HAT BRIM AND CROWN LAMINATING OPERATOR IMPRESSION: 1.Fracture of L3 vertebra are better evaluated on prior imaging and are not well delineated on this radiograph. No retropulsion. No height loss. 2.Density overlying the lower left kidney, could be a renal calculus or chronic renal infarction with calcification. > Dictated by Cyndi Paredes [facility] (residential monitor). IRobert MD have personally reviewed and interpreted this examination/study. > Interpreting Provider: Robert El MD on 10/11/2024 8:14 PM Narrative 10/11/2024 8:14 PM HAT [employer]IM [employer] CROWN LAMINATING OPERATOR EXAMINATION: XR LUMBAR SPINE 2 OR 3VW DATE/TIME OF EXAM: 10/11/2024 10:02 AM, LOCATION [facility] HISTORY: S32.020A: Compression fracture of L2 vertebra, initial encounter (HCC) f/u L3 fracture COMPARISON: No prior study is available for comparison. FINDINGS: The vertebral bodies are normally aligned. There is no fracture or compression deformity. The intervertebral disc spaces are maintained. The sacroiliac joints are normal. Redemonstration of right iliac wing fracture, status post fixation with a single screw. Multiple right lower rib fractures with rib platings. Density overlying the lower left kidney, could be a renal calculus. Procedure Note Robert El MD - 10/11/2024 EXAMINATION: XR LUMBAR SPINE 2 OR 3VW DATE/TIME OF EXAM: 10/11/2024 10:02 AM, LOCATION [facility] HISTORY: S32.020A: Compression fracture of L2 vertebra, initialencounter (HCC) f/u L3 fracture COMPARISON: No prior study is available for comparison. FINDINGS: The vertebral bodies are normally aligned. There is no fracture or compression deformity. The intervertebral disc spaces are maintained.The sacroiliac joints are normal. Redemonstration of right iliac wingfracture, status post fixation with a single screw. Multiple right lower rib fractures with rib platings. Density overlying the lower left kidney,could be a renal calculus. IMPRESSION: 1.Fracture of L3 vertebra are better evaluated on prior imaging and arenot well delineated on this radiograph. No retropulsion. No height loss. 2.Density overlying the lower left kidney, could be a renal calculus or chronic renal infarction with calcification. > Dictated by Cyndi CARREON [facility] (residential monitor). I, Robert El MD have personally reviewed and interpreted this examination/study. > Interpreting Provider: Robert El MD on 10/11/2024 8:14 PM us Geoff Pickering MD DIAGNOSTIC IMAGING ORDERABLE S Final Result * BASIC METABOLIC PANEL (CALCIUM TOTAL) (08/30/2024 3:04 AM [facility]) BUN 10 7 - 26 mg/dL 08/30/2024 4:26 [address] [facility] Creatinine 0.69 0.56 - 0.96 mg/dL 08/30/2024 4:26 AM [facility] Sodium 136 136 - 145 mmol/L 08/30/2024 4:26 AM [facility] Potassium 4.4 3.5 - 4.5 mmol/L 08/30/2024 4:26 AM [facility] Chloride 102 98 - 107 mmol/L 08/30/2024 4:26 AM [facility] CO2 23 22 - 29 mmol/L 08/30/2024 4:26 AM [facility] Glucose 87 70 - 99 mg/dL 08/30/2024 4:26 AM [facility] Calcium 8.6 8.4 - 10.2 mg/dL 08/30/2024 4:26 AM [facility] Anion Gap 11 6 - 16 08/30/2024 4:26 AM [facility] BUN/Creatinine Ratio 14 7 - 23 08/30/2024 4:26 AM [facility] Osmolality Calculated 280 275 - 295 mOsm/kg 08/30/2024 4:26 AM [facility] eGFR by CKD-EPI >90 >=90 mL/min/1.7 3 m2 08/30/2024 4:26 AM [facility] Blood BLOOD SPECIMEN / Unknown Lab Venipuncture / Unknown 08/30/2024 3:04 AM [employer] 08/30/2024 4:01 AM [employer] us Geoff Pickering MD LAB - CHEMISTRY ORDERABLES F inal Result [facility] [address] [place] [address], [facility] [phone] from Last 3 Months or Most Recently Relevant to Health Maintenance Insurance [facility] Address: [address] [address] [place] [address] REPLACED BY [facility] Advance Directives * Full Code (Latest Code Status on File) Date Activated Date Inactivated Comments 08/17/2024 9:25 PM 09/03/2024 12:18 AM Care Teams Tar Chaser Relationship Specialty Start Date End Date Kizzy Nava MD [address] [place] [address] PCP - General 12/09/18
--- OUTSIDE RECORDS SUMMARY | 2024-12-28 15:13 | XMS_ITS | Encounter Summary ---
Author Organization [facility] Healthcare Address [address] [place] [address] Care Team Providers Care Devil Tender Name Role Phone Kizzy Nava MD Primary Care Provider [phone] Amber Williamson MD Unavailable [phone] Encounter Details Date Type Department Care Team (Late st Contact Info) Description 08/02/2019 Documentation [facility] Case [facility] [id number] [place] [address] Liliya Vu RN Social History Tobacco Use Types Packs/Day Years Used Date Smoking Tobacco: Never Smokeless Tobacco: Never Alcohol Use Standard Drinks/Week Comments Yes 1 (1 standard drink = 0.6 oz pur e alcohol) AUDIT-C Answer Date Recorded Frequency of Alcohol Consumption 2-4 times a fri07/08/2019 Average Number of Drinks 1 or 2 019 Frequency of Binge Drinking Never 06/25 Comments No Sex and Gender Information Value Date Recorded Sex Assigned at Not on file 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
--- OUTSIDE RECORDS SUMMARY | 2024-12-28 15:13 | XMS_ITS | Clinical Summary ---
Author Organization [facility] Address [address] [place] [address] Care Team Providers Care Cyber Security Instructor Name Role Phone Kizzy Nava MD Primary Care Provider [phone] Allergies Active Allergy Reactions Criticality Noted Date Comments Meperidine Angioedema,Swelling High 12/17/2018 Swollen face Swollen face Medications ALPRAZolam (XANAX) 1 mg tablet Take 0.5 mg by mouth daily. 0 9 Active cyanocobalamin, vitamin B-12, (B-12 Compliance) 1,000 mcg/mL KitIndications:I aarti deficiency anemia, unspecified iron deficiency anemia type,Other vitamin B12 deficiency anemia 1,000 mcg by Injection route every 30 days. 2 Kit 3 0 Active traZODone (DESYREL) 50 mg tablet Take 50 mg by mouth nightly as needed. Active OXcarbazepine (TRILEPTAL) 300 mg tablet Take 300 mg by mouth 2 times daily. Active busPIRone (BUSPAR) 5 mg tablet Take 1 Tablet (5 mg) by mouth 3 times daily. 90 Tablet 2 Active Active Problems Problem Noted Date Diagnosed Date Hypokalemia 04/05/2020 Vitamin B12 deficiency (non anemic) 04/05/2020 Estrogen receptor positive 04/21/2019 Ductal carcinoma in situ (DCIS) of right breast 03/30/2019 Microcalcification of right breast on mammogram 03/12/2019 Abnormal ultrasound of breast 03/12/2019 Sign and symptom in breast 03/12/2019 Iron deficiency anemia 12/17/2018 Recurrent depressive disorder, current episode m oderate Family History Medical History Relation Name Comments Breast Cancer Mother Relation Name Status Comments Brother Alive Father Alive Mother Alive Social History Tobacco Use Types Packs/Day Years Used Date Smoking Tobacco: Never Smokeless Tobacco: Never Alcohol Use Standard Drinks/Week Comments Yes 0 (1 standard drink = 0.6 oz pur e alcohol) Education Answer Date Recorded What is the highest level of school you have completed or the highest degree you have received? Bachelor's degree (e.g., BA, AB, BS) 02/21/2022 Comments No Sex and Gender Information Value Date Recorded Sex Assigned at Not on file Legal Sex Female 4:05 PM CDT Gender Identity Not on file Sexual Orientation Not on file Last Filed Vital Signs Vital Sign Reading Time Taken Comments Blood Pressure 124/86 02/21/2022 2:04 PM CDT Pulse 76 02/21/2022 2:04 PM CDT Temperature 36.5 C (97.7 F) 02/21/2022 2:04 PM CDT Respiratory Rate 16 02/21/2022 2:04 PM CDT Oxygen Saturation 100% 02/12/2022 3:30 PM CDT Inhaled Oxygen Concentration - - Weight 52.6 kg (116 lb) 02/21/2022 2:04 PM CDT Height 152.4 cm (5') 02/21/2022 2:04 PM CDT Body Mass Index 22.65 02/21/2022 2:04 PM CDT Plan of Treatment Health Maintenance Due Date Last Done Comments DTAP/TDAP/TD VACCINES (1 - Tdap) 1991 HEPATITIS B VACCINES (1 of 3 - 19+ 3-dose series) 05/25 HPV/Cotest (21-29) 1993 CERVICAL CANCER SCREENING 2002 HPV/Cotest (30-65) 2002 PAP SMEAR 2002 COLORECTAL SCREENING 2017 Colorectal Cancer Screening 2017 FIT-DNA Q 3 years 2017 FIT/FOBT Q 1 year 2017 Flex Sig/CT Colonography Q 5 years 2017 ZOSTER VACCINE (1 of 2) 2022 INFLUENZA VACCINE (#1) 2024 Insurance [facility] [id number] Care Teams Cyber Security Instructor Relationship Specialty Start Date End Date Kizzy Nava MD [address] [place] [id number] PCP - General Family Practice 12/17/18
--- OUTSIDE RECORDS SUMMARY | 2024-12-28 15:13 | XMS_ITS | Data Portability ---
Author Organization [place] - [facility], Main Office Address [address] [place] [address] Care Team Providers Care Social Studies Department Chair Name Role Phone DAVON URIARTE Primary Care Provider [phone] DAVON URIARTE Referring Provider Assessment Encounter Date Assessment Date Assessment LastModified by Organization Details LastModified Time 06/16/2023 06/16/2023 HPI: 53-year-old female came in today for evaluation of numbness and tingling to the right arm. She has been having symptoms that have been progressively worsening over last 6 months. She will have numbness in the central 3 fingers. She will feel the tingling running up to the medial elbow and then up into her neck. At 1st symptoms were very mild. At this point she is getting more more episodes of the knee tingling in the arm every day. She does not recall any injury or trauma. 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 Patient has had carpal tunnel release done on her right hand over 30 years ago. Patient has been taking aleu-jwr-hxqrwpk ibuprofen on as-needed basis. Patient does not feel that she has any significant nocturnal symptoms with regard to the numbness. It is less noticeable when she is sleeping she states. Physical exam: 53-year-old female alert pleasant. She has a well-healed incision over the carpal tunnel on the right hand. She has a negative Tinel's to the median nerve but does have a positive carpal tunnel compression test in the right wrist. She has mildly positive Tinel's at the cubital tunnel. Full range of motion of the wrist, fingers and elbow. She has full range of motion of the neck. She does have a positive Spurling's maneuver to both the left and the right which cause her tingling and sensations running into the right arm. Several minutes after doing Spurling's maneuver she noticed an increase of tingling to the arm. She has normal motor function to the right upper extremity including biceps, triceps, wrist flexion and extension. Normal interosseous strength. Good scarf and anneal operator strength. 2+ radial pulse. Impression: Patient has numbness and tingling in the right arm. It is progressively gotten worse to where she is having symptoms on a daily basis. It is not constant at this point but it is frequent all day long. I think the strong likelihood is that this is most likely coming from her neck. There is a possibility that she could be having recurrence of the carpal tunnel and also some early cubital tunnel as well. I have recommended that we get an MRI scan for thorough evaluation. I am also going to put her a Medrol Dosepak and following that she will start Voltaren 75 mg b.i.d. to see if we get some of the irritability to quiet down. I talked with her that if the MRI scan of the neck is very normal she is having continued symptoms in the next step would be to get an EMG study at that point. We will call her in the medicine today we will get the MRI set up and see her back afterwards. [email or web address] Not available 06/16/2023 17:45:57 Plan of Treatment Reminders Order Date Submit Date Provider Last Modified By Organization Details Last Modified Time Details Appointments None record ed. Lab None record ed. Referral None record ed. Procedures None record ed. Surgeries None record ed. Imaging XR, neck 023 06/16/20 [email or web address] Not available 13:48:41 Medication Orders None record ed. Patient TargetsNo targets recorded. Patient InstructionsNo instructions recorded. Reason for Referral None Reported. Problems Name Problem SNOMED Code Status Onset Date Resolution Date Notes Provider Name and Address Organization Details Recorded Time Pain of bilateral hands 5965189361909 9109 Active 2022 Vivian Mays CNA null, [facility] [employer] [facility] 16:54:53 Paresthesia of upper limb 52060545 Active 2022 Nurys Low CMA null, [place] [employer] [facility] [employer] [facility] 17:45:38 Problem Notes None recorded. Procedures Surgical History Date Name Laterality Status Provider Name and Address Organization Details Recorded Time Masectomy completed Vivian Mays CNA [facility] 06/16/2023 16:53:29 Imaging Results None recorded. Procedure Notes None recorded. Medical Equipment None Reported. Allergies Allergen ID Allergen Name Allergen Category Reaction Reaction Severity Criticality Documentation Date Start Date Code Code System Note Provider Name and Address Organization Details Recorded Time 18811 Demerol medicatio n swelling Not available Not available 06/16/2023 67884 1 RxNorm facia l Vivian Mays DENISSE [facility], [facility] 16:51:07 Medications Name Sig Start Date Stop Date Status Note LastModified by Organization Details LastModified Time venlafaxine ER 37.5 mg capsule,ext ended release 24 hr 06/16 completed Not Available Not Available Not Available venlafaxine ER 150 mg capsule,ext ended release 24 hr active Not Available Not Available Not Available methylpheni date ER 54 mg tablet,exte nded release 24 hr 06/16 completed Not Available Not Available Not Available valacyclovi r 500 mg tablet active Not Available Not Available Not Available alprazolam 0.5 mg tablet TAKE 1 TABLET BY MOUTH THREE TIMES DAILY NEEDED active Not Available Not Available No t Available diclofenac sodium 75 mg tablet,gregorio yed release TAKE 1 TABLET BY MOUTH TWICE DAILY active Not Available Not Available No t Available methylpredn isolone 4 mg tablets in a dose pack FOLLOW PACKAGE DIRECTION S active Not Available Not Available No t Available methylpheni date ER 36 mg tablet,exte nded release 24 hr 06/16 completed Not Available Not Available Not Available progesteron e micronized 100 mg capsule TAKE 1 CAPSULE BY MOUTH EVERY NIGHT active Not Available Not Available No t Available methylpheni date ER 27 mg tablet,exte nded release 24 hr TAKE 1 TABLET BY MOUTH EVERY DAY IN THE MORNING 06/16 completed Not Available Not Available Not Available dextroamphe tamine-amph etamine ER 15 mg 24hr capsule,ext end release active Not Available Not Available Not Available Trintellix 10 mg tablet 06/16 completed Not Available Not Available Not Available Auvelity 45 mg-105 mg tablet, extended release 06/16 completed Not Available Not Available Not Available Vitals Date Recorded Body height Body mass index (BMI) Body weight Provider Name and Address Organization Details Last Updated DateTime 06/16/2023 149.86 cm 26.5 kg/m2 29973.32 g DENISSE Velazquez [facility] [employer] [facility] 06/16/2023 16:58:10 Social History Question Answer Notes LastModified by Organizat ion Details LastModified Time Tobacco Smoking Status Never Smoker Vivian Mays CNA null, [facility] [employer] [facility] 06/16/2023 16:53:04 What Is Your Level Of Alcohol Consumption? Occasional [email or web address] Information not available 06/16/2023 Sex: Unknown Functional Status None recorded. Mental Status None recorded. Family History Relationship Description Onset Age of this Age Resolved Age Notes LastModified by Organization Details LastModified Time Mother Family history of malignant neoplasm [email or web address] Not available 2022 16:52:34 Father Diabetes mellitus [email or web address] Not available 2022 16:52:46 Medical History Condition Response CANCER: SPECIFY Y Gynecological HistoryNo gynecological history recorded. Obstetrics History GPAL:G 0 P 0 0 0 0 Past Encounters Encounter ID Performer Location Encounter Start Date Encounter Closed Date Diagnosis/Indication Diagnosis SNOMED-CT Code Diagnosis ICD10 Code Diagnosis Note [id number] Bryan Mclain MD [facility] [address] [place] [address] 06/16/2023 16:30:31 06/16/2023 18:13:59 Pain of bilateral hands 9438337395 8211985 M79.641 M79.642 Health Concerns Section Related Observation LastModified by Organization Detai ls LastModified Time None Recorded Concern Status LastModified by Organization Details LastModified Time None Recorded Advance Directives Directive None Recorded Payers Encounter Date Sequence Insurance Name Policy Number Policy Fan Covered Member ID Fan Member ID Guarantor Name 06/16/2023 1 [facility] [id number] Valeria Bey [id number] Valeria Bey OBGyn Episode No OBEpisode recorded.
== END 2024-12-28 15:02 | disposition home or self-care (01) ==
PROVIDERS: PCP Family Medicine
DX: S22.41XD Multiple fractures of ribs, right side, subsequent encounter for fracture with routine healing (principal); X58.XXXD Exposure to other specified factors, subsequent encounter; N20.0 Calculus of kidney
CPT/HCPCS: 74176

== ENCOUNTER 2025-03-02 14:16 | Outpatient (CLI) | payer OTHER, SELFPAY ==
--- NOTE | 2025-03-02 14:21 | ECG_ITS ---
Test Date: 2025-03-02 14:34:27 Measurements Intervals [place] Rate: 78 P: 59 PA: 159 QRS: 2 QRSD: 100 T: 34 QT: 379 QTc: 433 Interpretive Statements SINUS RHYTHM WITH FREQUENT VENTRICULAR PREMATURE COMPLEXES NONSPECIFIC T-WAVE ABNORMALITY ABNORMAL RHYTHM ECG No previous ECG available for comparison Electronically Signed On 03-03-2025 11:37:17 CDT by Jerald Desir M.D.
--- OUTSIDE RECORDS SUMMARY | 2025-03-02 14:30 | XMS_ITS | Clinical Summary ---
Author Organization [facility] Address [address] [place] [address] Care Team Providers Care Offset Press Assistant Name Role Phone Kizzy Nava MD Primary Care Provider [phone] Allergies Active Allergy Reactions Criticality Noted Date [...] (1 of 2) 2022 INFLUENZA VACCINE (#1) 2025 Insurance COUNTS INCLUDE [facility] BEDS AT [facility] [id number] Care Teams Offset Press Assistant Relationship Specialty Start Date End Date Kizzy Nava MD [address] [place] [phone] PCP - General Family Practice 12/17/18
--- OUTSIDE RECORDS SUMMARY | 2025-03-02 14:30 | XMS_ITS | Data Portability ---
Author Organization [place] - [facility] [employer], Main Office Address [address] [place] [address] Care Team Providers Care Project Engineer Chemicals Name Role Phone DAVON URIARTE Primary Care Provider [phone] DAVON URIARTE Referring Provider Assessment Encounter Date [...] 30 years ago. Patient has been taking vkce-qvj-aeipbsz ibuprofen on as-needed basis. Patient does not [...] flexion and extension. Normal interosseous strength. Good associate director of nursing strength. 2+ radial pulse. Impression: Patient has [...] record ed. Imaging XR, neck 023 06/16/20 [email or web address] Not available 13:48:41 Medication Orders None record ed. Patient TargetsNo targets recorded. Patient InstructionsNo instructions recorded. Reason for Referral None Reported. Problems Name Problem SNOMED Code Status Onset Date Resolution Date Notes Provider Name and Address Organization Details Recorded Time Pain of bilateral hands 4120613387861 9109 Active 2022 Vivian Mays CNA null, [facility] [employer] [facility] 16:54:53 Paresthesia of upper limb 32475756 Active 2022 Nurys Low CMA null, [facility] [employer] [facility] 17:45:38 Problem Notes None recorded. Procedures Surgical History Date Name Laterality Status Provider Name and Address Organization Details Recorded Time Masectomy completed Vivian Mays CNA [employer] [facility] [employer] 06/16/2023 16:53:29 Imaging Results None recorded. Procedure Notes None recorded. Medical Equipment None Reported. Allergies Allergen ID Allergen Name Allergen Category Reaction Reaction Severity Criticality Documentation Date Start Date Code Code System Note Provider Name and Address Organization Details Recorded Time 98442 Demerol medicatio n swelling Not available Not available 06/16/2023 63774 1 RxNorm facia l Vivian Mays CNA null, [facility] [employer] 16:51:07 Medications Name Sig Start Date Stop [...] Updated DateTime 06/16/2023 149.86 cm 26.5 kg/m2 58947.32 g Vivian Mays CNA [place] [facility] 06/16/2023 16:58:10 Social History None recorded. Functional Status Question Answer Note LastModified by Organizat ion Details LastModified Time What is your level of alcohol consumption? Occasional [email or web address] Information not available 06/16/2023 Mental Status None recorded. Family History Relationship [...] SNOMED-CT Code Diagnosis ICD10 Code Diagnosis Note [id number] Bryan Mclain MD [facility] [address] [place] [address] 06/16/2023 16:30:31 06/16/2023 18:13:59 Pain of bilateral hands 4204446745 6201173 M79.641 M79.642 Health Concerns Section Related Observation LastModified by Organization Detai ls LastModified Time None Recorded Concern Status LastModified by Organization Details LastModified Time None Recorded Advance Directives Directive None Recorded Payers Insurance Date Sequence Insurance Name Policy Number Policy Fan Covered Member ID Fan Member ID Guarantor Name 06/16/2023 1 [facility] [id number] Valeria Bey [id number] Valeria Bey OBGyn Episode No OBEpisode recorded.
--- OUTSIDE RECORDS SUMMARY | 2025-03-02 14:30 | XMS_ITS | Encounter Summary ---
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
--- OUTSIDE RECORDS SUMMARY | 2025-03-02 14:30 | XMS_ITS | Clinical Summary ---
Author Organization [facility] Address [address] [place] [address] Phone Care Team Providers Care Agency Sales Development Associate Name Role Phone Kizzy Nava MD Primary Care Provider [phone] Amber Williamson MD Unavailable [phone] Allergies Active Allergy Reactions Criticality Noted Date [...] (12/03/2019): Added automatically from request for surgery [id number] H/O bilateral breast implants 12/03/2019 Overview (12/03/2019): Added automatically from request for surgery [id number] Ductal carcinoma in situ (DCIS) of breast [...] on file Legal Sex Female 2:02 AM SHREDDED FILLER CIGAR MAKER MACHINE Gender Identity Female 02/05/2020 5:37 PM CDT Sexual Orientation Not on file Obstetrics History Last Filed Vital Signs Vital Sign Reading Time Taken Comments Blood Pressure 125/65 01/13/2024 1:08 PM CDT Pulse 65 01/13/2024 1:08 PM CDT Temperature 36.5 C (97.7 F) 10/30/2020 12:52 PM SHREDDED FILLER CIGAR MAKER MACHINE Respiratory Rate 18 01/13/2024 1:08 PM CDT [...] Vaccine (1 of 2) 2022 Influenza Vaccine (#1) 2025 05/13/2020 Pneumococcal vaccine <65 Aged Out No longer eligible based on patient's age to complete this topic Medical Devices Implanted Type Area Windows Server Architect Device Identifier Shelf Expiration Date Model / Serial / Lot Life Cell Servio [id number] Alloderm Select [id number] Allograft Regenerative Thk.4-2.4mm Thick - [id number] 004by - [id number] Implanted:Qty: 1 on 07/28/2019 by Luca West MD at [facility] Breast Right: Breast [employer] 06/24/2021 [id number] / [id number] / [id number] Life Cell Eloina [id number] Alloderm Select [id number] Allograft Regenerative Thk.4-2.4mm Thick - [id number] 006bv - [id number] Implanted:Qty: 1 on 07/28/2019 by Luca West MD at [facility] Breast Left: Breast [employer] 06/24/2021 [id number] / [id number] / [id number] [employer]er[employer] Ssf-415 Kendricke Conradoira Smooth Shell Surface Full Profile Implant 415cc Latex Free - [id number] - [id number] Implanted:Qty: 1 on 07/28/2019 by Amber Williamson MD at [facility] Breast Left: Breast [employer] 07/15/2023 SSF-415 / [id number] / [id number] [employer] Ssf-415 Natrelle Inspira Smooth Shell Surface Full Profile Implant 415cc Latex Free - [id number] - [id number] Implanted:Qty: 1 on 07/28/2019 by Amber Williamson MD at [facility] Breast Right: Breast [employer] 02/03/2024 SSF-415 / [id number] / [employer] Ssx-545 Natrelle Inspira Soft Touch Implant 545cc Breast Sterile Latex Free - [id number] - [id number] Implanted:Qty: 1 on 02/07/2020 by Piedad Mackey MD at [facility] Left: Breast [employer] 09/18/2024 SSX-545 / [id number] / [employer] Ssx-545 Natrelle Inspira Soft Touch Implant 545cc Breast Sterile Latex Free - [id number] - [id number] Implanted:Qty: 1 on 02/07/2020 by Anna Beltran MD at [facility] Right: Breast [employer] 02/03/2023 SSX-545 / [id number] / Explanted Type Area Windows Server Architect Device Identifier Shelf Expiration Date Model / Serial / Lot Breast Implant Explanted:Qty: 1 on 02/07/2020 by Piedad Mackey MD at [facility] Right: Breast [employer] Breast Implant Explanted:Qty: 1 on 02/07/2020 by Anna Beltran MD at [facility] Left: Breast [employer] Insurance [facility] H[facility]/PPO Address: [place] [address] [facility]/PPO Address: [place] [address] Advance Directives For more information, please contact: [phone] * Full Code (Latest Code Status on File) Date Activated Date Inactivated Comments 02/07/2020 3:23 PM 02/08/2020 1:40 PM * Full Code Date Activated Date Inactivated Comments 07/28/2019 5:09 PM 07/29/2019 3:35 PM Care Teams Agency Sales Development Associate Relationship Specialty Start Date End Date Kizzy Nava MD PCP - General Family Medicine 04/06/19 Amber Williamson MD Surgeon Surgical Oncology 09/20/19
--- OUTSIDE RECORDS SUMMARY | 2025-03-02 14:30 | XMS_ITS | Referral Summary ---
Author Organization [facility] Address [address] [place] [address] Phone Care Team Providers Care Medical Claims Processor Name Role Phone Kizzy Nava MD Primary Care Provider Amber Williamson MD Unavailable [phone] Allergies Active Allergy Reactions Criticality Noted Date [...] (12/03/2019): Added automatically from request for surgery [id number] H/O bilateral breast implants 12/03/2019 Overview (12/03/2019): Added automatically from request for surgery [id number] Ductal carcinoma in situ (DCIS) of breast [...] on file Legal Sex Female 2:02 AM NECKTIE TURNER Gender Identity Female 02/05/2020 5:37 PM CDT Sexual Orientation Not on file Last Filed Vital Signs Vital Sign Reading Time Taken Comments Blood Pressure 125/65 01/13/2024 1:08 PM CDT Pulse 65 01/13/2024 1:08 PM CDT Temperature 36.5 C (97.7 F) 10/30/2020 12:52 PM NECKTIE TURNER Respiratory Rate 18 01/13/2024 1:08 PM CDT Oxygen Saturation 100% 02/08/2020 7:46 AM CDT Inhaled Oxygen Concentration - - Weight 53.5 kg (118 lb) 01/13/2024 1:08 PM CDT Height 152.4 cm (5') 01/13/2024 1:08 PM CDT Body Mass Index 23.05 01/13/2024 1:08 PM CDT Plan of Treatment Not on file Medical Devices Implanted Type Area Secondary History Teacher Device Identifier Shelf Expiration Date Model / Serial / Lot Life Cell Eloina [id number] Alloderm Select [id number] Allograft Regenerative Thk.4-2.4mm Thick - [id number] 004by - [id number] Implanted:Qty: 1 on 07/28/2019 by Luca West MD at [facility] Breast Right: Breast [employer] 06/24/2021 [id number] / [id number] / [id number] Life Cell Eloina [id number] Alloderm Select [id number] Allograft Regenerative Thk.4-2.4mm Thick - [id number] 006bv - [id number] Implanted:Qty: 1 on 07/28/2019 by Luca West MD at [facility] Breast Left: Breast [employer] 06/24/2021 [id number] / +[id number] / [id number] [employer] Ssf-415 Natrelle Inspira Smooth Shell Surface Full Profile Implant 415cc Latex Free - [id number] - [id number] Implanted:Qty: 1 on 07/28/2019 by Amber Williamson MD at [facility] Breast Left: Breast [employer] 07/15/2023 SSF-415 / [id number] / [id number] [employer] Ssf-415 Natrelle Inspira Smooth Shell Surface Full Profile Implant 415cc Latex Free - [id number] - [id number] Implanted:Qty: 1 on 07/28/2019 by Amber Williamson MD at [facility] Breast Right: Breast [employer] 02/03/2024 SSF-415 / [id number] / [employer] Ssx-545 Natrelle Inspira Soft Touch Implant 545cc Breast Sterile Latex Free - [id number] - [id number] Implanted:Qty: 1 on 02/07/2020 by Piedad Mackey MD at [facility] Left: Breast [employer] 09/18/2024 SSX-545 / [id number] / [employer] Ssx-545 Natrelle Inspira Soft Touch Implant 545cc Breast Sterile Latex Free - [id number] - [id number] Implanted:Qty: 1 on 02/07/2020 by Anna Beltran MD at [facility] Right: Breast [employer] 02/03/2023 SSX-545 / [id number] / Explanted Type Area Secondary History Teacher Device Identifier Shelf Expiration Date Model / Serial / Lot Breast Implant Explanted:Qty: 1 on 02/07/2020 by Piedad Mackey MD at [facility] Right: Breast [employer] Breast Implant Explanted:Qty: 1 on 02/07/2020 by Anna Beltran MD at [facility] Left: Breast [employer] Insurance Advance Directives For more information, please contact: [phone] * Full Code (Latest Code Status on File) Date Activated Date Inactivated Comments 02/07/2020 3:23 PM 02/08/2020 1:40 PM * Full Code Date Activated Date Inactivated Comments 07/28/2019 5:09 PM 07/29/2019 3:35 PM Care Teams Medical Claims Processor Relationship Specialty Start Date End Date Kizzy Nava MD PCP - General Family Medicine 04/06/19 Amber Williamson MD Surgeon Surgical Oncology 09/20/19
--- OUTSIDE RECORDS SUMMARY | 2025-03-02 14:30 | XMS_ITS | Clinical Summary ---
Author Organization [facility] Address [address] [place] [address] Care Team Providers Care Hand Box Coverer Name Role Phone Kizzy Nava MD Primary Care Provider [phone] Source Comments [facility],non-[facility] Affiliates and Associated Physician Practices is amultiple site organization consisting of ambulatory clinics and hospital sitesin [place], [place], [place] and [place]. This disclosure is being madepursuant to the Care Everywhere program and may not contain all information available regarding this patient. Last updated 18.[facility] Medlert Allergies Active Allergy Reactions Criticality Noted Date [...] Enteral Tube route once daily 09/03/19 Active Additional Information Patient not taking.Reason: Patient adjusted, Reported on 12/21/2024 tamsulosin (Flomax) 0.4 MG capsule Take 1 (one) capsule by mouth at bedtime At the same time every day after a meal. 09/02/19 Active methocarbamol (Robaxin) 750 MG tablet 1 (one) tablet by Enteral Tube route every 6 hours 09/02/19 Active Additional Information Patient not taking.Reason: Patient adjusted, Reported on 12/21/2024 vitamin D3 (Cholecalcifero l) 25 MCG (1000 UNITS) tablet 1 (one) tablet by Enteral Tube route once daily 09/03/19 25 Active HYDROcodone-jeremy taminophen ([place]) 5-325 MG tabletIndicatio ns:Injury of diaphragm, initial encounter Take 1 (one) tablet by mouth every 4 hours as needed 09/02/19 Active Additional Information Patient not taking.Reason: Patient adjusted, Reported on 12/21/2024 HYDROcodone-jeremy taminophen ([place]) 5-325 MG tabletIndicatio ns:Injury of diaphragm, initial [...] times daily 90 capsule 12/22/19 25 Active Active Problems Problem Noted Date Diagnosed Date Fracture of multiple ribs of right side 08/20/20 24 Compression fracture of L2 08/20/2024 Fracture of thoracic transverse process 08/20/20 Closed displaced fracture of medial cuneiform of left foot 08/20/2024 Fracture of navicular bone of left foot 08/20/20 24 Fracture of left ankle 08/20/2024 Fracture of [...] Encounters Date Type Department Care Team Description 02/15/2025 Telephone [facility] - Orthopedics [address] [place] [phone] Ludy Sandhu PA-C Pain Foot 01/20/2025 9:25 AM CDT - 01/20/2025 11:59 PM CDT Hospital Encounter [facility] - Outside Imaging Discharge Disposition: Home or Self Care 01/13/2025 11:45 AM CDT Office Visit [facility] - General Surgery [address] [place] [phone] Surgery follow-up (Primary Dx); Closed fracture of multiple ribs of right side with routine healing, subsequent encounter; Dyspnea on exertion 01/13/2025 Travel 01/04/2025 11:05 AM CDT - 01/04/2025 11:59 PM CDT Hospital Encounter [facility] DIAGNOSTIC RAD [facility] [address] [place] [address] Mauricio Castañeda, DO Discharge Disposition: Home or Self Care 01/04/2025 11:05 AM CDT Hospital Encounter [facility] DI[facility]NOSTIC RAD [facility] [address] [facility] [place] [address] Mauricio Castañeda, DO Discharge Disposition: Home or Self Care 01/04/2025 11:00 AM CDT Office Visit [facility] - Orthopedics [address] [place] [phone] Mauricio Castañeda, DO Closed displaced fracture of medial cuneiform of left foot, initial encounter (Primary Dx); Open displaced fracture of right ilium, unspecified fracture morphology, initial encounter (HCC) 01/04/2025 Travel 12/28/2024 Orders Only [facility] - Orthopedics [address] [place] [phone] Mauricio Castañeda, DO Closed displaced fracture of medial cuneiform of left foot, initial encounter ; Open displaced fracture of right ilium, unspecified fracture morphology, initial encounter ([facility]) 12/22/2024 Telephone [facility] - General Surgery [address] [place] [phone] Sandee Beaulieu, RN Coordination Of Care 12/21/2024 2:00 PM CDT Office Visit [facility] - General Surgery [address] [place] [phone] Closed fracture of multiple ribs of right side with routine healing, subsequent encounter (Primary Dx) 12/21/2024 Travel 12/17/2024 Travel from Last 3 Months Immunizations Immunization Administration Dates Next Due TDAP (7yrs+) 08/17/2024 Social History Tobacco Use Types Packs/Day Years Used Date Smoking Tobacco: Never Passive Smoke Exposure: Never Smokeless Tobacco: Never Tobacco Cessation:Counseling Given: Not Answered AUDIT-C Answer Date Recorded Q1: How often [...] Answer Date Recorded Patient Health Questionnaire-2 Score 0 01/04/2025 [facility] [place] [facility] Occupat ional Health - Occupational Stress [...] money to buy more. Never true 08/18/20 24 Within the past 12 months, t he [...] any time in the past 12 m [facility], were you homeless or living in a [facility] (including now)? No 08/18/2024 Comments No Sex and Gender Information Value Date Recorded Sex Assigned at Not on file Legal Sex Female 4:04 AM CDT Gender Identity Not on file Sexual Orientation Not on file Last Filed Vital Signs Vital Sign Reading Time Taken Comments Blood Pressure 115/84 01/13/2025 11:48 AM CDT Pulse 84 01/13/2025 11:48 AM CDT Temperature 36.7 C (98.1 F) 01/13/2025 11:48 AM CDT Respiratory Rate 18 01/13/2025 11:48 AM CDT Oxygen Saturation 98% 01/13/2025 11:48 AM CDT Inhaled Oxygen Concentration 21% 09/01/2024 3 :21 AM SALES DEVELOPMENT DIRECTOR Weight 59 kg (130 lb) 01/13/2025 11:48 AM CDT Height 152.4 cm (5') 01/13/2025 11:48 AM CDT Body Mass Index 25.39 01/13/2025 11:48 AM CDT Plan of Treatment Upcoming Encounters Date Type Department Care Team (Late st Contact Info) Description 03/08/2025 10:45 AM CDT Office Visit [facility] - Orthopedics [address] [place] [address], [place] [phone] Mauricio Castañeda, DO [facility] [place], [place] [id number] Health Maintenance Due Date Last Done Comments COLOGUARD (AGES 45-75) - COLON CA SCREENING 1972 COLON MONITORING 1972 COLONOSCOPY - COLON CA SCREENING 1972 CT COLONOGRAPHY - COLON CA SCREENING 1972 Colorectal Cancer Screening 1972 FIT - COLON CA SCREENING 1972 FLEX SIG - COLON CA SCREENING 1972 LIPID TESTING 1972 HIV SCREENING 1987 HEPATITIS C SCREENING 06/08/1990 HEPATITIS B VACCINE (1 of 3 - 19+ 3-dose series) 1991 PNEUMOCOCCAL VACCINE 50+ (1 of 2 - PCV) 1991 PAP SMEAR 1993 MAMMOGRAM 03/23/2021 03/23/2019 ZOSTER VACCINE (1 of 2) 2022 COVID-19 VACCINE (1 - season) 2024 INFLUENZA VACCINE (#1) 2025 SCREENING FOR DIABETES 08/30/2027 , 08/29/2024, [...] Recent Progress Patient-Stated? Author Mobility General No GauravNell Note: Expected end date: PATIENT IS WB IN THE ACB The goal is to maintain or improve your mobility at the optimum level for you. Interventions: Perform independent activity per your ability Medical Devices Implanted Type Area Spray Ii Painter Device Identifier Shelf Expiration Date Model / Serial / Lot 3.5 Mm Cannulated Screw- Long Thread 30mm. Implanted:Qty: 1 on 08/18/2024 by Mauricio Castañeda DO at [facility] Left: Foot [employer] 04.354.330 TS / / 3.5 Mm Cannulated Screw- Long Thread- 32mm Implanted:Qty: 1 on 08/18/2024 by Mauricio Castañeda DO at [facility] Left: Foot [employer] 04.354.332 TS / / 3.5 Mm Cannulated Screw- Long Thread- 36mm Implanted:Qty: 1 on 08/18/2024 by Mauricio Castañeda DO at [facility] Left: Foot [employer] 04.354.336 TS / / Washer For 3.5 Bing Screw Implanted:Qty: 1 on 08/18/2024 by Mauricio Castañeda DO at [facility] Left: Foot [employer] 04.353.903 .05 / / Screw 3.5mm 6mm 75mm Slf-Tap Sm Hex Sckt Implanted:Qty: 1 on 08/18/2024 by Mauricio Castañeda DO at [facility] Right: Hip S[employer]s Usa 204.875 / / Screw 2.7mm 10mm Slf Drl Lck Matrixrib Implanted:Qty: 7 on 08/22/2024 by Geoff Pickering MD at [facility] [employer] [id number] .01 / / Screw 2.7mm 11mm Slf Drl Lck Matrixrib Implanted:Qty: 5 on 08/22/2024 by Geoff Pickering MD at [facility] [employer]sa 04.501.211 .01 / / Screw 2.7mm 12mm Lck Slf Drl Matrixrib Implanted:Qty: 3 on 08/22/2024 by Geoff Pickering MD at [facility] [employer] Spine 04.501.212 .01 / / Plate 17 Hl Precontr Lck Lopro 6th Rb Implanted:Qty: 1 on 08/22/2024 by Geoff Pickering MD at [facility] 04.501.006 / / [facility] [id number] Thk1mm Biomtl - [id number] Implanted:Qty: 1 on 08/22/2024 by Geoff Pickering MD at [facility] [employer] 09/09/2027 [id number] / [id number] / Description:DIAPHRAM Screw 2.7mm 10mm Slf Drl Nonlock Implanted:Qty: 2 on 08/22/2024 at [facility] [employer] Spine 04.501.250 .01 / / Plate 8 Hl Unv Matrixrib Ti Bone Nonster Implanted:Qty: 4 on 08/22/2024 by Geoff Pickering MD at [facility] 04.501.009 / / Screw 2.9mm 10mm Slf-Tap Lck Rb Implanted:Qty: 20 on 08/22/2024 by Geoff Pickering MD at [facility] Maxillofacial 04.501.020 .01 / / Procedures Procedure Name Priority Date/Time Associated Diagnosis Comments XR PELVIS AP W INLET OUTLET Routine 01/04/2025 11:20 AM CDT Open displaced fracture of right ilium, unspecified fracture morphology, initial encounter ([facility]) XR FOOT LEFT 3VW OR MORE Routine 01/04/2025 11:20 AM CDT Closed displaced fracture of medial cuneiform of left foot, initial encounter CT ABDOMEN PELVIS OUTSIDE Routine 12/28/2024 12:42 PM CDT IMAGING/RADIOLOGY/X RAY RESULTS ORDER 12/28/2024 BASIC METABOLIC PANEL (CALCIUM TOTAL) AM Draw 08/30/2024 3:04 AM SALES DEVELOPMENT DIRECTOR from Last 3 Months or Most Recently Relevant to Health Maintenance Results * XR Pelvis AP W Inlet Outlet (01/04/2025 11:20 AM CDT) Anatomical Region Laterality Modality Pelvis Radiographic Little ging 01/04/2025 11:2 7 AM CDT Impressions 01/04/2025 11:28 AM CDT IMPRESSION: Unchanged alignment. > Interpreting Provider: Jace Pennington MD on 01/04/2025 11:28 AM Narrative 01/04/2025 11:28 AM CDT PROCEDURE: XR PELVIS AP W INLET OUTLET DATE/TIME OF EXAM: 01/04/2025 11:20 AM CLINICAL INFORMATION: None relevant/not provided if blank. Indication: S32.301B: Open displaced fracture of right ilium, unspecified fracture morphology, initial encounter ([facility]) Additional History: COMPARISON: 10/26/2024 TECHNIQUE: FINDINGS: Redemonstration of right iliac wing fracture with fixation by one screw. The hardware is intact and the alignment is unchanged. The pubic symphysis, sacroiliac joints, and hip joint spaces are normal. Procedure Note Jace Pennington MD - 01/04/2025 PROCEDURE: XR PELVIS AP W INLET OUTLET DATE/TIME OF EXAM: 01/04/2025 11:20 AM CLINICAL INFORMATION: None relevant/not provided if blank. Indication: S32.301B: Open displaced fracture of right ilium,unspecified fracture morphology, initial encounter ([facility]) Additional History: COMPARISON: 10/26/2024 TECHNIQUE: FINDINGS: Redemonstration of right iliac wing fracture with fixation by one screw. The hardware is intact and the alignment is unchanged. The pubicsymphysis, sacroiliac joints, and hip joint spaces are normal. IMPRESSION: Unchanged alignment. > Interpreting Provider: Jace Pennington MD on 01/04/2025 11:28 AM Mauricio Castañeda DO DIAGNOSTIC IMAGING ORDERABLES Final Result * XR Foot Left 3Vw or More (01/04/2025 11:20 AM CDT) Anatomical Region Laterality Modality Ankle / Foot Radiographic Little ging 01/04/2025 11:2 8 AM CDT Impressions 01/04/2025 11:29 AM CDT IMPRESSION: Unchanged osseous alignment. > Interpreting Provider: Jace Pennington MD on 01/04/2025 11:29 AM Narrative 01/04/2025 11:29 AM CDT PROCEDURE: XR FOOT LEFT 3VW OR MORE DATE/TIME OF EXAM: 01/04/2025 11:20 AM CLINICAL INFORMATION: None relevant/not provided if blank. Indication: S92.242A: Closed displaced fracture of medial cuneiform of left foot, initial encounter Additional History: COMPARISON: 11/23/2024. FINDINGS: Redemonstration of postsurgical changes including fixation of a navicular fracture with a screw, the cuneiforms with a screw, and the Lisfranc region with a screw extending from the medial cuneiform and second metatarsal base. The hardware is intact. The alignment is unchanged. The nonsurgical joint spaces are maintained. Procedure Note Jace Pennington MD - 01/04/2025 PROCEDURE: XR FOOT LEFT 3VW OR MORE DATE/TIME OF EXAM: 01/04/2025 11:20 AM CLINICAL INFORMATION: None relevant/not provided if blank. Indication: S92.242A: Closed displaced fracture of medial cuneiform ofleft foot, initial encounter Additional History: COMPARISON: 11/23/2024. FINDINGS: Redemonstration of postsurgical changes including fixation of anavicular fracture with a screw, the cuneiforms with a screw, and the Lisfrancregion with a screw extending from the medial cuneiform and second metatarsal base. The hardware is intact. The alignment is unchanged. Thenonsurgical joint spaces are maintained. IMPRESSION: Unchanged osseous alignment. > Interpreting Provider: Jace Pennington MD on 01/04/2025 11:29 AM Mauricio Castañeda DO DIAGNOSTIC IMAGING ORDERABLES Final Result * CT Abdomen Pelvis Outside (12/28/2024 12:42 PM CDT) Narrative [facility] - 01/24/2025 12:42 PM CDT This is a study from an outside facility that has been uploaded into PACS. us Provider Digitize IMAGING Final Result [facility] * IMAGING/RADIOLOGY/XRAY RESULTS ORDER (12/28/2024) Anatomical Region Laterality Modality Other 12/28/2024 Narrative 12/28/2024 Ordered by an unspecified provider. us Scanned Document IMAGING Final Result * BASIC METABOLIC PANEL (CALCIUM TOTAL) (08/30/2024 3:04 AM [facility] BUN 10 7 - 26 mg/dL 08/30/2024 4:26 AM [facility] Creatinine 0.69 0.56 - 0.96 mg/dL 08/30/2024 4:26 AM [facility] Sodium 136 136 - 145 mmol/L 08/30/2024 4:26 AM [facility] Potassium 4.4 3.5 - 4.5 mmol/L 08/30/2024 4:26 AM [facility] Chloride 102 98 - 107 mmol/L 08/30/2024 4:26 AM [facility] CO2 23 22 - 29 mmol/L 08/30/2024 4:26 AM [facility] Glucose 87 70 - 99 mg/dL 08/30/2024 4:26 AM [facility] Calcium 8.6 8.4 - 10.2 mg/dL 08/30/2024 4:26 AM [facility] Anion Gap 11 6 - 16 08/30/2024 4:26 AM [facility] BUN/Creatinine Ratio 14 7 - 23 08/30/2024 4:26 AM [facility] Osmolality Calculated 280 275 - 295 mOsm/kg 08/30/2024 4:26 AM [facility] eGFR by CKD-EPI >90 >=90 mL/min/1.7 3 m2 08/30/2024 4:26 AM [facility] Blood BLOOD SPECIMEN / Unknown Lab Venipuncture / Unknown 08/30/2024 3:04 AM SALES DEVELOPMENT DIRECTOR 08/30/2024 4:01 AM SALES DEVELOPMENT DIRECTOR us Geoff Pickering MD LAB - CHEMISTRY ORDERABLES F inal Result [facility] [address] [place] [address], [facility] [phone] from Last 3 Months or Most Recently Relevant to Health Maintenance Insurance [facility] Advance Directives * Full Code (Latest Code Status on File) Date Activated Date Inactivated Comments 08/17/2024 9:25 PM 09/03/2024 12:18 AM Care Teams Hand Box Coverer Relationship Specialty Start Date End Date Kizzy Nava MD [address] [place] [address] PCP - General 12/09/18
== END 2025-03-02 14:17 | disposition home or self-care (01) ==
LOC: ANHCARD 14:18
PROVIDERS: PCP Family Medicine; Visit Provider Student in an Organized Health Care Education/Training Program
DX: I46.9 Cardiac arrest, cause unspecified (principal); R94.31 Abnormal electrocardiogram [ECG] [EKG]
CPT/HCPCS: 93005

== ENCOUNTER 2025-05-31 14:47 | Outpatient (CLI) | payer OTHER, SELFPAY ==
--- NOTE | ~2025-05-31 | MR_ITS ---
EXAMINATION: MR brain/brain stem wo/w con DATE: 05/31/2025 15:54 INDICATION: Cardiac arrest. TECHNIQUE: Magnetic resonance imaging (MRI) of the brain and brainstem was performed without and with 12 mL MultiHance intravenous contrast. COMPARISON: None. FINDINGS: There is an old infarct in right parietal occipital region with dystrophic calcifications. There is an old infarct in left occipital lobe with dystrophic calcifications. There is no intracranial hemorrhage, acute infarction, or abnormal intracranial mass lesion. There are scattered areas of n onspecific increased T2-weighted signal intensity in the cerebral white matter. The ventricles are normal in size. The paranasal sinuses are clear. The orbits are normal. The mastoid air cells are normal. IMPRESSION: 1. 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 Old infarct in left occipital lobe. 2. Mild nonspecific cerebral white matter disease, which likely represents chronic small vessel ischemic disease. Reviewed, dictated and finalized at location E. IMPRESSION: 1. 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 Old infarct in left occipita l lobe. 2. Mild nonspecific cerebral white matter disease, which likely represents rn chronic benito small vessel ischemic disease.
--- OUTSIDE RECORDS SUMMARY | 2025-05-31 10:45 | XMS_ITS | Encounter Summary ---
Author Organization [facility] Address [address] [place] [address] Care Team Providers Care Devops Engineer Name Role Phone Kizzy Nava MD Primary Care Provider [phone] Encounter Details Date Type Department Care Team (Late st Contact Info) Description 05/31/2025 10:45 AM CDT Office Visit [facility] - Orthopedics [address] [place] [address], [place] [address] Mauricio Castañeda, [address] [place] [address] [place] [address] Open displaced fracture of right ilium, unspecified fracture morphology, initial encounter ([facility]) (Primary Dx); Closed displaced fracture of medial cuneiform of left foot with routine healing, subsequent encounter; Closed nondisplaced fracture of navicular bone of right foot with routine healing, subsequent encounter Social History Tobacco Use Types Packs/Day Years Used Date Smoking Tobacco: Never Passive Smoke Exposure: Never Smokeless Tobacco: Never AUDIT-C Answer Date Recorded Q1: How often [...] Date Recorded Patient Health Questionnaire-2 Score 0 05/31/2025 [facility] [place] of Occupat ional Health - Occupational Stress [...] any time in the past 12 m [facility], were you homeless or living in a [facility] (including now)? No 08/18/2024 Comments No Sex and Gender Information Value Date Recorded Sex Assigned at Not on file Legal Sex Female 4:04 AM CDT Gender Identity Not on file Sexual Orientation Not on file documented as of this encounter Last Filed Vital Signs Vital Sign Reading Time Taken Comments Blood Pressure - - Pulse - - Temperature - - Respiratory Rate - - Oxygen Saturation - - Inhaled Oxygen Concentration - - Weight 59 kg (130 lb) 05/31/2025 10:58 AM CDT Height 152.4 cm (5') 05/31/2025 10:58 AM CDT Body Mass Index 25.39 05/31/2025 10:58 AM CDT documented in this encounter Functional Status * Is person deaf or have serious hearing difficulty? Answer Date of Assessment Author No 08/18/2024 6:12 PM Deedee Rogers RN * Is person blind or have serious difficulty seeing? Answer Date of Assessment Author No 08/18/2024 6:12 PM Deedee Rogers RN * Does person have serious difficulty walking/climbing stairs? Answer Date of Assessment Author No 08/18/2024 6:12 PM Deedee Rogers RN * Does person have difficulty dressing/bathing? Answer Date of Assessment Author No 08/18/2024 6:12 PM Deedee Rogers RN * Does person have difficulty doing errands alone? Answer Date of Assessment Author No 08/18/2024 6:12 PM Deedee Rogers RN * Over the past 2 weeks, how often have you been bothered by any of the following problems? Question Answer Date of Assessment Author Patient Health Questionnaire-2 Score 0 05/31/2025 12:40 PM CDT Mychart, Proce ss Support User * Little interest or pleasure in doing things Answer Date of Assessment Author Not at all 05/31/2025 12:40 PM CDT Mychart, Process Support User * Feeling down, depressed, or hopeless Answer Date of Assessment Author Not at all 05/31/2025 12:40 PM CDT Mychart, Process Support User documented as of this encounter Mental Status * Does person have difficulty concentrating/remembering/making decisions? Answer Entry Date Author No 08/18/2024 6:12 PM Deedee Rogers RN documented in this encounter Plan of Treatment Upcoming Encounters Date Type Department Care Team (Late st Contact Info) Description 08/02/2025 10:30 AM SPEECH AND LANGUAGE CLINICIAN Office Visit [facility] - Orthopedics [address] [place] [address], [place] [address] Mauricio Castañeda, [address] [place] [address] [place] [address] documented as of this encounter Goals Goal Patient Goal Type Associated Problems Recent Progress Patient-Stated? Author Mobility General No Nell Nolasco Note: Expected end date: PATIENT IS WB IN THE ACB The goal is to maintain or improve your mobility at the optimum level for you. Interventions: Perform independent activity per your ability documented as of this encounter Visit Diagnoses Diagnosis Open displaced fracture of right ilium, unspecified fracture morphology, initial encounter (HCC)- Primary Closed displaced fracture of medial cuneiform of left foot with routine healing, subsequent encounter Closed nondisplaced fracture of navicular bone of right foot with routine healing, subsequent encounter documented in this encounter Care Teams Devops Engineer Relationship Specialty Start Date End Date Kizzy Nava MD [address] [place] [address] PCP - General 12/09/18 documented as of this encounter
--- OUTSIDE RECORDS SUMMARY | 2025-05-31 10:50 | XMS_ITS | Encounter Summary ---
Author Organization [facility] Address [address] [place] [address] Care Team Providers Care Pearl Glue Drier Name Role Phone Kizzy Nava MD Primary Care Provider [phone] Encounter Details Date Type Department Care Team (Late st Contact Info) Description 05/31/2025 10:50 AM CDT Hospital Encounter [facility] [address] [facility] [address] Mauricio Castañeda, DO [address] [facility] [place] [address] Social History Tobacco Use Types Packs/Day Years [...] Recorded Patient Health Questionnaire-2 Score 0 05/31/2025 [facility] [place] of Occupat ional Health - Occupational Stress [...] any time in the past 12 m [facility], were you homeless or living in a long term (including now)? No 08/18/2024 Comments No Sex and Gender Information Value Date Recorded Sex Assigned at Not on file Legal Sex Female 4:04 AM CDT Gender Identity Not on file Sexual Orientation Not on file documented as of this encounter Functional Status * Is person [...] Assessment Author No 08/18/2024 6:12 PM Deedee Rogers, OLIVIER * Over the past 2 weeks, how [...] st Contact Info) Description 08/02/2025 10:30 AM FILTER PLANT OPERATOR Office Visit [facility] - Orthopedics [address] [place] [address], [place] [address] Mauricio Castañeda, [address] [place] [address] OF ORTHOPEDIC SURGERY [place] [id number] documented as of this encounter Goals Goal Patient Goal Type Associated Problems Recent Progress Patient-Stated? Author Mobility General No Nell Nolasco Note: Expected end date: PATIENT IS WB IN THE ACB The goal is to maintain or improve your mobility at the optimum level for you. Interventions: Perform independent activity per your ability documented as of this encounter Procedures Procedure Name Priority Date/Time Associated Diagnosis Comments XR FOOT LEFT 3VW OR MORE Routine 05/31/2025 10:58 AM CDT Closed displaced fracture of medial cuneiform of left foot with routine healing, subsequent encounter documented in this encounter Results * XR Foot Left 3Vw or More (05/31/2025 10:58 AM CDT) Anatomical Region Laterality Modality Ankle / Foot Radiographic Little ging 05/31/2025 11:1 3 AM CDT Impressions 05/31/2025 11:22 AM CDT IMPRESSION: Postsurgical changes in the midfoot, unchanged in alignment. > Interpreting Provider: Jace Pennington MD on 05/31/2025 11:22 AM Narrative 05/31/2025 11:22 AM CDT PROCEDURE: XR FOOT LEFT 3VW OR MORE DATE/TIME OF EXAM: 05/31/2025 10:58 AM CLINICAL INFORMATION: None relevant/not provided if blank. Indication: S92.242D: Closed displaced fracture of medial cuneiform of left foot with routine healing, subsequent encounter Additional History: COMPARISON: 09/01/2024 FINDINGS: Redemonstration of fixation of the medial aspect of the midfoot with 3 screws in the region of the navicular, cuneiforms, and one extending to the second metatarsal base. The hardware is intact and the alignment is unchanged. The nonsurgical joint spaces are normal. There is mild soft tissue swelling. Procedure Note Jace Pennington MD - 05/31/2025 PROCEDURE: XR FOOT LEFT 3VW OR MORE DATE/TIME OF EXAM: 05/31/2025 10:58 AM CLINICAL INFORMATION: None relevant/not provided if blank. Indication: S92.242D: Closed displaced fracture of medial cuneiform ofleft foot with routine healing, subsequent encounter Additional History: COMPARISON: 09/01/2024 FINDINGS: Redemonstration of fixation of the medial aspect of the midfoot with 3 screws in the region of the navicular, cuneiforms, and one extending tothe second metatarsal base. The hardware is intact and the alignment is unchanged. The nonsurgical joint spaces are normal. There is mild soft tissue swelling. IMPRESSION: Postsurgical changes in the midfoot, unchanged in alignment. > Interpreting Provider: Jace Pennington MD on 05/31/2025 11:22 AM Mauricio Castañeda DO DIAGNOSTIC IMAGING ORDERABLES Final Result documented in this encounter Visit Diagnoses Diagnosis Closed displaced fracture of medial cuneiform of left foot with routine healing, subsequent encounter documented in this encounter Care Teams Pearl Glue Drier Relationship Specialty Start Date End Date Kizzy Nava MD [address] [place] [address] PCP - General 12/09/18 documented as of this encounter
--- OUTSIDE RECORDS SUMMARY | 2025-05-31 15:45 | XMS_ITS | Clinical Summary ---
Author Organization [facility] Address [address] [place] [address] Phone Care Team Providers Care Esl Instructor Name Role Phone Kizzy Nava MD Primary Care Provider [phone] Amber Williamson MD Unavailable [phone] Allergies Active Allergy Reactions Criticality Noted Date [...] (12/03/2019): Added automatically from request for surgery [id number] H/O bilateral breast implants 12/03/2019 Overview (12/03/2019): Added automatically from request for surgery [id number] Ductal carcinoma in situ (DCIS) of breast 2018 Encounters Date Type Department Care Team Description 04/13/2025 Telephone [facility] Medicine Surgery [address] [facility] [address] [place] [address] Luca West MD from Last 3 Months Surgical History Surgery Date Site/Laterality Comments TONSILLECTOMY [...] on file Legal Sex Female 2:02 AM RESPIRATORY CARE TECHNICIAN Gender Identity Female 02/05/2020 5:37 PM CDT Sexual Orientation Not on file Obstetrics History Last Filed Vital Signs Vital Sign Reading Time Taken Comments Blood Pressure 125/65 01/13/2024 1:08 PM CDT Pulse 65 01/13/2024 1:08 PM CDT Temperature 36.5 C (97.7 F) 10/30/2020 12:52 PM RESPIRATORY CARE TECHNICIAN Respiratory Rate 18 01/13/2024 1:08 PM CDT [...] this topic Medical Devices Implanted Type Area Enzyme Chemist Device Identifier Shelf Expiration Date Model / Serial / Lot Life Cell Eloina [id number] Alloderm Select [id number] Allograft Regenerative Thk.4-2.4mm Thick - [id number] - [id number] Implanted:Qty: 1 on 07/28/2019 by Luca West MD at [facility] Breast Right: Breast [employer] 06/24/2021 [id number] / [id number] / [id number] Life Cell Eloina [id number] Alloderm Select [id number] Allograft Regenerative Thk.4-2.4mm Thick - [id number] - [id number] Implanted:Qty: 1 on 07/28/2019 by Luca West MD at [facility] Breast Left: Breast [employer] 06/24/2021 [id number] / [id number] / [id number] [employer] Ssf-415 Natrelle Inspira Smooth Shell Surface Full Profile Implant 415cc Latex Free - [id number] - [id number] Implanted:Qty: 1 on 07/28/2019 by Amber Williamson MD at [facility] Breast Left: Breast [employer] 07/15/2023 SSF-415 / [id number] / [id number] [employer] Ssf-415 Natrelle Inspira Smooth Shell Surface Full Profile Implant 415cc Latex Free - [id number] - [id number] Implanted:Qty: 1 on 07/28/2019 by Amber Williamson MD at [facility] Breast Right: Breast [employer] 02/03/2024 SSF-415 / [id number] / [employer] Ssx-545 Natrelle Inspira Soft Touch Implant 545cc Breast Sterile Latex Free - [id number] - [id number] Implanted:Qty: 1 on 02/07/2020 by Piedad Mackey MD at [facility] Left: Breast [employer] 09/18/2024 SSX-545 / [id number] / [employer] Ssx-545 Natrelle Inspira Soft Touch Implant 545cc Breast Sterile Latex Free - [id number] - [id number] Implanted:Qty: 1 on 02/07/2020 by Anna Beltran MD at [facility] Right: Breast [employer] 02/03/2023 SSX-545 / [id number] / Explanted Type Area Enzyme Chemist Device Identifier Shelf Expiration Date Model / Serial / Lot Breast Implant Explanted:Qty: 1 on 02/07/2020 by Piedad Mackey MD at [facility] Right: Breast [employer] Breast Implant Explanted:Qty: 1 on 02/07/2020 by Anna Beltran MD at [facility] Left: Breast [employer] Insurance [facility] CHOICE PLUS [facility] CHOICE PLUS Advance Directives For more information, please contact: [phone] * Full Code (Latest Code Status on File) Date Activated Date Inactivated Comments 02/07/2020 3:23 PM 02/08/2020 1:40 PM * Full Code Date Activated Date Inactivated Comments 07/28/2019 5:09 PM 07/29/2019 3:35 PM Care Teams Esl Instructor Relationship Specialty Start Date End Date Kizzy Nava MD PCP - General Family Medicine 04/06/19 Amber Williamson MD Surgeon Surgical Oncology 09/20/19
--- OUTSIDE RECORDS SUMMARY | 2025-05-31 15:46 | XMS_ITS | Encounter Summary ---
Author Organization [facility] Healthcare Address [address] [place] [address] Care Team Providers Care Welder Setter Resistance Machine Name Role Phone Kizzy Nava MD Primary Care Provider [phone] Amber Williamson MD Unavailable [phone] Encounter Details Date Type Department Care Team (Late st Contact Info) Description 08/02/2019 Documentation [facility] Case Management [address] [place] [address] Liliya Vu RN Social History Tobacco Use [...] on file Legal Sex Female 2:02 AM TELEPHONE DIAPHRAGM ASSEMBLER Gender Identity Female 02/05/2020 5:37 PM CDT Sexual Orientation Not on file documented as of this encounter Plan of Treatment Not on file documented as of this encounter Visit Diagnoses Not on filedocumented in this encounter Care Teams Welder Setter Resistance Machine Relationship Specialty Start Date End Date Kizzy Nava MD PCP - General Family Medicine 04/06/19 Amber Williamson MD Surgeon Surgical Oncology 09/20/19 documented as of this encounter
--- OUTSIDE RECORDS SUMMARY | 2025-05-31 15:46 | XMS_ITS | Data Portability ---
Author Organization [place] [facility], Main Office Address [address] [place] [address] Care Team Providers Care Independent Marketing Consultant Name Role Phone DAVON UIRARTE Primary Care Provider DAVON URIARTE Referring Provider Assessment Encounter Date [...] 30 years ago. Patient has been taking [id number] ibuprofen on as-needed basis. Patient does not [...] flexion and extension. Normal interosseous strength. Good fourdrinier operator strength. 2+ radial pulse. Impression: Patient [...] record ed. Imaging XR, neck 023 06/16/20 Not available 13:48:41 Medication Orders None record ed. Patient TargetsNo targets recorded. Patient InstructionsNo instructions recorded. Reason for Referral None Reported. Problems Name Problem SNOMED Code Status Onset Date Resolution Date Notes Provider Name and Address Organization Details Recorded Time Pain of bilateral hands 6946486370065 9109 Active 2022 Vivian Mays CNA null, [facility] [employer] [facility] 16:54:53 Paresthesia of upper limb 45719650 Active 2022 Nurys Low CMA null, [facility] [employer] [facility] 17:45:38 Problem Notes None recorded. Procedures Surgical History Date Name Laterality Status Provider Name and Address Organization Details Recorded Time Masectomy completed Vivian Mays CNA [employer] [facility] 06/16/2023 16:53:29 Imaging Results None recorded. Procedure Notes None recorded. Medical Equipment None Reported. Allergies Allergen ID Allergen Name Allergen Category Reaction Reaction Severity Criticality Documentation Date Start Date Code Code System Note Provider Name and Address Organization Details Recorded Time 00198 Demerol medicatio n swelling Not available Not available 06/16/2023 57631 1 RxNorm facia l Vivian Mays CNA null, [facility] 16:51:07 Medications Name Sig Start Date Stop [...] Updated DateTime 06/16/2023 149.86 cm 26.5 kg/m2 28744.32 g Vivian Mays CNA [place] Juan Tiana MD [facility] 06/16/2023 16:58:10 Social History None recorded. Functional [...] Diagnosis SNOMED-CT Code Diagnosis ICD10 Code Diagnosis IMO Codes Diagnosis Note [id number] Bryan Mclain MD [facility] [address] [place] [address] 06/16/2023 16:30:31 06/16/2023 18:13:59 Pain of bilateral hands 2463694503 2051568 M79.641 M79.642 Health Concerns Section Related Observation LastModified by Organization Detai ls LastModified Time None Recorded Concern Status LastModified by Organization Details LastModified Time None Recorded Advance Directives Directive None Recorded Payers Insurance Date Sequence Insurance Name Policy Number Policy Fan Covered Member ID Fan Member ID Guarantor Name 06/16/2023 1 [facility] [id number] Valeria Bey [id number] Valeria Bey OBGyn Episode No OBEpisode recorded.
--- OUTSIDE RECORDS SUMMARY | 2025-05-31 15:46 | XMS_ITS | Clinical Summary ---
Author Organization [facility] Address [address] [place] [address] Care Team Providers Care Coping Machine Assembler Name Role Phone Kizzy Nava MD Primary Care Provider [phone] Allergies Active Allergy Reactions Criticality Noted Date [...] 2) 2022 INFLUENZA VACCINE (#1) 2025 Insurance [facility] [id number] Care Teams Coping Machine Assembler Relationship Specialty Start Date End Date Kizzy Nava MD [address] [place] [address] PCP - General Family Practice 12/17/18
--- OUTSIDE RECORDS SUMMARY | 2025-05-31 15:46 | XMS_ITS | Encounter Summary ---
Author Organization [facility] Address [address] [facility] [place] [address] Care Team Providers Care Senior Mechanical Engineer Name Role Phone Kizzy Nava MD Primary Care Provider [phone] Encounter Details Date Type Department Care Team (Latest Contact Info) Description 05/31/2025 Travel Social History Tobacco Use Types Packs/Day Years [...] Recorded Patient Health Questionnaire-2 Score 0 05/31/2025 [place] of Occupat ional Health - Occupational Stress [...] any time in the past 12 m [facility], were you homeless or living in [...] Entry Date Author No 08/18/2024 6:12 PM GARDEN IMPLEMENT MECHANIC Deedee Lala RN documented in this encounter Plan of Treatment Upcoming Encounters Date Type Department Care Team (Late st Contact Info) Description 08/02/2025 10:30 AM GARDEN IMPLEMENT MECHANIC Office Visit [facility] [address] [place] [address], [place] [address] Mauricio Castañeda DO [address] [place] [address] [place] [address] documented as of this encounter Goals Goal [...] on filedocumented in this encounter Care Teams Senior Mechanical Engineer Relationship Specialty Start Date End Date Kizzy Nava MD [address] [place] [address] PCP - General 12/09/18 documented as of this encounter
--- OUTSIDE RECORDS SUMMARY | 2025-05-31 15:46 | XMS_ITS | Patient Health Record ---
Author Organization [facility] [employer] [facility] Address [address] [place] [address] Care Team Providers Care Drafting Teacher Name Role Phone Cong Walsh Unavailable [phone] Reason For Referral No Information Medications Medication SIG (Take, Route, Frequency, Duration) Notes Start Date End Date Status traZODone HCl 50 MG Tablet Oral 12/08/2023 Active FLUZONE QUAD (PF) 60 MCG (15 MCG X 4)/0.5 ML IM SYRINGE *Reorder from Pocketbook for eRx and Interaction Alerts* 12/08/2023 Active Venlafaxine HCl ER 150 MG Capsule Extended Release 24 Hour Oral 12/08/2023 Active Immunizations Vaccine Route Administration Date Status Comme nts Influenza, unspecified formulation Unknown 08/26/2022 A dministered Novel [id number], preservative free Unknown 05/13/2020 Administered Pfizer Biontech Covid-19 Vac cine 2nd dose Unknown 10/22/2020 Administered Pfizer Biontech Covid-19 Vac cine 2nd dose Unknown 11/12/2020 Administered Pfizer Biontech Covid-19 Vac cine 2nd dose Unknown 07/17/2021 Administered Social History Social History Additional Details Category Social Info Options Details Migrated Social History Migrated Social History Alcohol Intake: Occasional 12/24/2019,Tobacco Years: Never smoker 12/24/2019 Plan Of Treatment No Information Insurance Providers Payer Name Payer Address Payer Phone Subscriber Number Group Number Insured Name Patient Relationship to Insured Coverage Start Date Coverage End Date [facility] [address] [address] [place] [address] [id number] FOSTER RATLIFF Self - patient is the insured Medical (General) History Surgical History Surgery Date(Month/Year) delivery (97867) Excision of bilateral breasts ([id number]) Tonsilectomy/adenoids 10/24/1997 Breast surgery (80647) 07/29/2019
--- OUTSIDE RECORDS SUMMARY | 2025-05-31 15:46 | XMS_ITS | Encounter Summary ---
Author Organization [facility] Address [address] [place] [address] Care Team Providers Care Shadow Graph Weight Operator Name Role Phone Kizzy Nava MD Primary Care Provider [phone] Encounter Details Date Type Department Care Team (Late st Contact Info) Description 05/30/2025 Orders Only [facility] [address] [place] [address], [place] [address] Mauricio Castañeda, DO [address] [place] [address] [place] [address] Closed displaced fracture of medial cuneiform of left foot with routine healing, subsequent encounter Social [...] Recorded Patient Health Questionnaire-2 Score 0 05/31/2025 [place] of Occupat ional Health - Occupational Stress [...] any time in the past 12 m [facility], were you homeless or living [...] st Contact Info) Description 08/02/2025 10:30 AM ASSORTER LAUNDRY Office Visit [facility] - Orthopedics [address] [place] [address], [place] [address] Mauricio Castañeda, [address] [place] [address] [place] [address] documented as of this encounter Goals Goal Patient Goal Type Associated Problems Recent Progress Patient-Stated? Author Mobility General No Nell Nolasco Note: Expected end date: PATIENT IS WB IN THE ACB The goal is to maintain or improve your mobility at the optimum level for you. Interventions: Perform independent activity per your ability documented as of this encounter Results * XR Foot Left [...] of left foot with routine healing, subsequent encounter- Primary Closed displaced fracture of medial cuneiform of left foot with routine healing, subsequent encounter documented in this encounter Care Teams Shadow Graph Weight Operator Relationship Specialty Start Date End Date Kizzy Nava MD [address] [place] [address] PCP - General 12/09/18 documented as of this encounter
--- OUTSIDE RECORDS SUMMARY | 2025-05-31 15:46 | XMS_ITS | Clinical Summary ---
Author Organization [facility] Address [address] [place] [address] Care Team Providers Care Urban Planning Professor Name Role Phone Kizzy Nava MD Primary Care Provider [phone] Source Comments [facility],non-owned Affiliates and Associated Physician Practices is amultiple site organization consisting of ambulatory clinics and hospital sitesin [place], [place], [place] and [place]. This disclosure is being madepursuant to the Care Everywhere program and may not contain all information available regarding this patient. Last updated 18.[facility] Allergies Active Allergy Reactions Criticality Noted Date [...] g by Enteral Tube route once daily 09/03/19 [...] Enteral Tube route every 6 hours 09/02/19 25 Active Additional Information Patient not taking.Reason: Patient adjusted, Reported on 12/21/2024 vitamin D3 (Cholecalcifero l) 25 MCG (1000 UNITS) tablet 1 (one) tablet by Enteral Tube route once daily 09/03/19 25 Active HYDROcodone-jeremy taminophen ([place]) 5-325 MG tabletIndicatio ns:Injury of diaphragm, initial encounter Take 1 (one) tablet by mouth every 4 hours as needed 09/02/19 25 Active Additional Information Patient not taking.Reason: Patient adjusted, Reported on 12/21/2024 HYDROcodone-jeremy taminophen ([place]) 5-325 MG tabletIndicatio ns:Injury of diaphragm, initial [...] of multiple ribs of right side 08/20/20 Compression fracture of L2 08/20/2024 Fracture of [...] Encounters Date Type Department Care Team Description 05/31/2025 10:50 AM T Hospital Encounter [facility] [address] [facility] [place] [address] Mauricio Castañeda DO 05/31/2025 10:45 AM T Office Visit [facility] - Orthopedics [address] [place] [phone] Mauricio Castañeda DO Open displaced fracture of right ilium, unspecified fracture morphology, initial encounter ([facility]) (Primary Dx); Closed displaced fracture of medial cuneiform of left foot with routine healing, subsequent encounter; Closed nondisplaced fracture of navicular bone of right foot with routine healing, subsequent encounter 05/31/2025 Travel 05/30/2025 Orders Only [facility] - Orthopedics [address] [place] [phone] Mauricio Castañeda DO Closed displaced fracture of medial cuneiform of left foot with routine healing, subsequent encounter 03/08/2025 11:08 AM CDT - 03/08/2025 11:59 PM CDT Hospital Encounter [facility] [address] [facility] [place] [address] Mauricio Castañeda, DO Discharge Disposition: Home or Self Care 03/08/2025 11:07 AM CDT Hospital Encounter [facility] [address] [facility] [address] Mauricio Castañeda, DO Discharge Disposition: Home or Self Care 03/08/2025 10:45 AM CDT Office Visit [facility] - Orthopedics [address] [place] [address], [place] [address] Mauricio Castañeda, DO Open displaced fracture of right ilium, unspecified fracture morphology, initial encounter ([facility]) (Primary Dx); Closed displaced fracture of medial cuneiform of left foot with routine healing, subsequent encounter 03/08/2025 Travel 03/07/2025 Orders Only [facility] - [facility] [address] [place] [phone] Mauricio Castañeda, Closed displaced fracture of medial cuneiform of left foot with routine healing, subsequent encounter ; Open displaced fracture of right ilium, unspecified fracture morphology, initial encounter ([facility]) from Last 3 Months Immunizations Immunization Administration [...] Recorded Patient Health Questionnaire-2 Score 0 05/31/2025 [facility] - Occupational Stress [...] any time in the past 12 [facility], were you homeless or living in a residential (including now)? No 08/18/2024 Comments No Sex [...] Oxygen Concentration 21% 09/01/2024 3 :21 AM SHOPPING INVESTIGATOR Weight 59 kg (130 lb) 05/31/2025 10:58 AM CDT Height 152.4 cm (5') 05/31/2025 10:58 AM CDT Body Mass Index 25.39 05/31/2025 10:58 AM CDT Plan of Treatment Upcoming Encounters Date Type Department Care Team (Late st Contact Info) Description 08/02/2025 10:30 AM SHOPPING INVESTIGATOR Office Visit [facility] - [facility] [address] [facility] [place] [address] Mauricio Castañeda, [address] [facility] [place] [address] Health Maintenance Due Date Last Done Comments [...] VACCINE (1 of 2) 2022 COVID-19 VACCINE (4 - season) 2025 07/17/2021, 11/12/2020, 10/22/2020 INFLUENZA VACCINE (#1) 2025 08/26/2022 SCREENING FOR DIABETES 08/30/2027 , 08/29/2024, 08/28/2024, [...] your ability Medical Devices Implanted Type Area Emergency Management Program Specialist Device Identifier Shelf Expiration Date Model / Serial / Lot 3.5 Mm Cannulated Screw- Long Thread 30mm. Implanted:Qty: 1 on 08/18/2024 by Mauricio Castañeda DO at [facility] Left: Foot [employer] [id number] TS / / 3.5 Mm Cannulated Screw- Long Thread- 32mm Implanted:Qty: 1 on 08/18/2024 by Mauricio Castañeda DO at [facility] Left: Foot [employer] [id number] TS / / 3.5 Mm Cannulated Screw- Long Thread- 36mm Implanted:Qty: 1 on 08/18/2024 by Mauricio Castañeda DO at [facility] Left: Foot [employer] [id number] TS / / Washer For 3.5 Bing Screw Implanted:Qty: 1 on 08/18/2024 by Mauricio Castañeda DO at [facility] Left: Foot [employer] [id number] .05 / / Screw 3.5mm 6mm 75mm Slf-Tap Sm Hex Sckt Implanted:Qty: 1 on 08/18/2024 by Mauricio Castañeda DO at [facility] Right: Hip [employer] 204.875 / / Screw 2.7mm 10mm Slf Drl Lck Matrixrib Implanted:Qty: 7 on 08/22/2024 by Geoff Pickering MD at [facility] [employer] [id number] .01 / / Screw 2.7mm 11mm Slf Drl Lck Matrixrib Implanted:Qty: 5 on 08/22/2024 by Geoff Pickering MD at [facility] [employer] [id number] .01 / / Screw 2.7mm 12mm Lck Slf Drl Matrixrib Implanted:Qty: 3 on 08/22/2024 by Geoff Pickering MD at [facility] [employer] [id number] .01 / / Plate 17 Hl Precontr Lck Lopro 6th Rb Implanted:Qty: 1 on 08/22/2024 by Geoff Pickering MD at [facility] [employer] [id number] / / Mesh Srg [facility] [id number] Thk1mm Biomtl - [id number] Implanted:Qty: 1 on 08/22/2024 by Geoff Pickering MD at [facility] [employer] 09/09/2027 [id number] / [id number] / Description:DIAPHRAM Screw 2.7mm 10mm Slf Drl Nonlock Implanted:Qty: 2 [facility] [id number] .01 / / Plate 8 Hl Unv Matrixrib Ti Bone Nonster Implanted:Qty: 4 on 08/22/2024 by Geoff Pickering MD at [facility] [employer] [id number] / / Screw 2.9mm 10mm Slf-Tap Lck Rb Implanted:Qty: 20 on 08/22/2024 by Geoff Pickering MD at [facility] Maxillofacial [id number] .01 / / Procedures Procedure Name Priority Date/Time Associated Diagnosis Comments XR FOOT LEFT 3VW OR MORE Routine 05/31/2025 10:58 AM CDT Closed displaced fracture of medial cuneiform of left foot with routine healing, subsequent encounter XR PELVIS AP W INLET OUTLET Routine 03/08/2025 11:18 AM CDT Open displaced fracture of right ilium, unspecified fracture morphology, initial encounter ([facility]) XR FOOT LEFT 3VW OR MORE Routine 03/08/2025 11:18 AM CDT Closed displaced fracture of medial cuneiform of left foot with routine healing, subsequent encounter BASIC METABOLIC PANEL (CALCIUM TOTAL) AM Draw 08/30/2024 3:04 AM SHOPPING INVESTIGATOR from Last 3 Months or Most Recently Relevant to Health Maintenance Results * XR Foot Left 3Vw or More (05/31/2025 10:58 AM CDT) Only the most recent of2 [...] Jace Pennington MD on 05/31/2025 11:22 AM us Mauricio Castañeda DO DIAGNOSTIC IMAGING ORDERABLES Final Result * XR Pelvis AP W Inlet Outlet (03/08/2025 11:18 AM CDT) Anatomical Region Laterality Modality Pelvis Radiographic Little ging 03/08/2025 12:3 9 PM CDT Impressions 03/08/2025 12:40 PM CDT IMPRESSION: Unchanged osseous alignment. > Interpreting Provider: Jace Pennington MD on 03/08/2025 12:40 PM Narrative 03/08/2025 12:40 PM CDT PROCEDURE: XR PELVIS AP W INLET OUTLET DATE/TIME OF EXAM: 03/08/2025 11:19 AM CLINICAL INFORMATION: None relevant/not provided if blank. Indication: S32.301B: Open displaced fracture of right ilium, unspecified fracture morphology, initial encounter ([facility]) Additional History: COMPARISON: 01/04/2025. TECHNIQUE: FINDINGS: There is again fixation of a right iliac wing fracture with one screw. The hardware is intact and the alignment is unchanged. The pubic symphysis, sacroiliac joints, and hip joint spaces are maintained. Procedure Note Jace Pennington MD - 03/08/2025 PROCEDURE: XR PELVIS AP W INLET OUTLET DATE/TIME OF EXAM: 03/08/2025 11:19 AM CLINICAL INFORMATION: None relevant/not provided if blank. Indication: S32.301B: Open displaced fracture of right ilium,unspecified fracture morphology, initial encounter ([facility]) Additional History: COMPARISON: 01/04/2025. TECHNIQUE: FINDINGS: There is again fixation of a right iliac wing fracture with one screw.The hardware is intact and the alignment is unchanged. The pubic symphysis, sacroiliac joints, and hip joint spaces are maintained. IMPRESSION: Unchanged osseous alignment. > Interpreting Provider: Jace Pennington MD on 03/08/2025 12:40 PM us Mauricio Castañeda DO DIAGNOSTIC IMAGING ORDERABLES Final Result * BASIC METABOLIC PANEL (CALCIUM TOTAL) (08/30/2024 3:04 AM [facility]) BUN 10 7 - 26 mg/dL 08/30/2024 4:26 AM [facility] Creatinine 0.69 0.56 - 0.96 mg/dL 08/30/2024 4:26 AM [facility] Sodium 136 136 - 145 mmol/L 08/30/2024 4:26 AM [facility] Potassium 4.4 3.5 - 4.5 mmol/L 08/30/2024 4:26 AM [facility] Chloride 102 98 - 107 mmol/L 08/30/2024 4:26 AM [facility] CO2 23 22 - 29 mmol/L 08/30/2024 4:26 AM [facility] Glucose 87 70 - 99 mg/dL 08/30/2024 4:26 AM [facility] Calcium 8.6 8.4 - 10.2 mg/dL 08/30/2024 4:26 AM [facility] Anion Gap 11 6 - 16 08/30/2024 4:26 AM [facility] BUN/Creatinine Ratio 14 7 - 23 08/30/2024 4:26 AM [facility] Osmolality Calculated 280 275 - 295 mOsm/kg 08/30/2024 4:26 AM [facility] eGFR by CKD-EPI >90 >=90 mL/min/1.7 3 m2 08/30/2024 4:26 AM [facility] Blood BLOOD SPECIMEN / Unknown Lab Venipuncture / Unknown 08/30/2024 3:04 AM [facility] 08/30/2024 4:01 AM [facility] us Geoff Pickering MD LAB - CHEMISTRY ORDERABLES F inal Result [facility] [address] [place] [address], [facility] [phone] from Last 3 Months or Most Recently Relevant to Health Maintenance Insurance [facility] Advance Directives * Full Code (Latest Code Status on File) Date Activated Date Inactivated Comments 08/17/2024 9:25 PM 09/03/2024 12:18 AM Care Teams Urban Planning Professor Relationship Specialty Start Date End Date Kizzy Nava MD [address] [place] [address] PCP - General 12/09/18
== END 2025-05-31 14:48 | disposition home or self-care (01) ==
PROVIDERS: PCP Student in an Organized Health Care Education/Training Program; Visit Provider Student in an Organized Health Care Education/Training Program
DX: R41.89 Other symptoms and signs involving cognitive functions and awareness (principal); G93.1 Anoxic brain damage, not elsewhere classified; S06.9XAA Unspecified intracranial injury with loss of consciousness status unknown, initial encounter; X58.XXXA Exposure to other specified factors, initial encounter; I46.9 Cardiac arrest, cause unspecified; R90.82 White matter disease, unspecified
CPT/HCPCS: 70553; A9577